=== PATIENT | female | born 1935 | race African-American/Black ===

== ENCOUNTER 2019-03-31 17:57 | Inpatient (IN) | payer OTHER, MEDICAID, MEDICARE ==
[~2019-03-31] VITALS: Ht 172.7 cm; Wt 81.2 kg
--- NOTE | 2019-03-31 17:57 | NUR ---
PT [facility] BLS TO ER BED 06
[2019-03-31 18:03] VITALS: BP 126/63
[2019-03-31] MEDS ORDERED: NACL 0.9% 500 ML IV SCH (18:12)
--- NOTE | 2019-03-31 18:30 | NUR ---
PT BIB CARE AMB S/P ALOC X 24 HOURS ACCORDING TO SNF. BASELINE A/OX1, NOW WITHDRAWING ONLY TO PAIN. GCS 8, PUPILS 2MM PERRLA. NO EVIDENCE OF FEVERS/NVD. 89% ON RA, 4L NC APPLIED. RESPIS E/U, DIMINISHED LUNG SOUNDS BILAT THROUGHOUT. SKIN INTACT. 97 BS. AFIB 90 ON MONITOR. HX OF CVA, HTN, DM.
--- NOTE | 2019-03-31 19:01 | NUR ---
Pt report given to MOISES Renner. Transfer of care at this time.
--- NOTE | 2019-03-31 19:15 | NUR ---
UNEQUAL PUPILS NOTED (LEFT PUPIL CONSTRICTED, R PUPIL DILATED), PT WITH HX OF CVA, DR EISENBERG MADE AWARE.
--- NOTE | 2019-03-31 19:15 | NUR ---
DR EISENBERG AT BEDSIDE. PER REPORT, PT WITH DECREASED LOC FROM BASELINE X24 HRS. SPO2 95% ON 3L NC, RR 15 EVEN AND UNLABORED. IVF INFUSING WELL ON L HAND 22G. FLOWERS IN PLACE. ALL NEEDS MET.
--- NOTE | 2019-03-31 19:40 | NUR ---
DAUGHTER AT BEDSIDE
[2019-03-31 19:42] LABS: BASOPHILS % (AUTO) 0.2 % (0.0-2.0); EOSINOPHILS % (AUTO) 0.9 % (0.0-4.0); HEMATOCRIT 34.9 % (36-48); HEMOGLOBIN 11.2 g/dL (12.0-16.0); LYMPHOCYTES # (AUTO) 1.7 K/uL (2.5-16.5); MEAN CORPUSCULAR HEMOGLOBIN 31 pg (27-31); MEAN CORPUSCULAR HGB CONC 32 g/dL (33-37); MONOCYTES # (AUTO) 0.3 K/uL (0.8-1.0); MONOCYTES % (AUTO) 7.3 % (1.7-9.3); NEUTROPHILS # (AUTO) 1.9 K/uL (1.8-7.7); NEUTROPHILS % (AUTO) 48.6 % (42.2-75.2); PLATELET COUNT (AUTO) 346 K/uL (140-450); RED BLOOD CELL COUNT(AUTO) 3.63 MIL/uL (4.20-5.40); RED CELL DISTRIBUTION WIDTH 15.3 % (11.6-13.7); WHITE BLOOD COUNT (AUTO) 3.9 K/uL (4.8-10.8)
--- NOTE | 2019-03-31 19:42 | NUR ---
DR MELTON AT BEDSIDE
[2019-03-31 19:48] LABS: APPEARANCE,URINE CLEAR (CLEAR); BILIRUBIN,URINE NEGATIVE (NEGATIVE); BLOOD, URINE NEGATIVE (NEGATIVE); COLOR,URINE YELLOW (YELLOW); LEUKOCYTE ESTERASE ,URINE NEGATIVE (NEGATIVE); NITRITE, URINE POSITIVE (NEGATIVE); PH,URINE 5.5 (5.0-9.0); UGLUCOSE NEGATIVE (NEGATIVE)
--- NOTE | 2019-03-31 20:00 | NUR ---
HOSPITAL ON CT DIVERSION, PT TO BE TAKEN TO [facility] FOR CT HEAD WITHOUT CONTRAST, [facility] ETA 1 HR
[2019-03-31 20:09] LABS: RBC,URINE 0-5 /HPF (0-5)
[2019-03-31 20:12] LABS: ANION GAP 10.3 (8-16); ASPARTATE AMINOTRANSFERASE 13 U/L (15-37); CARBON DIOXIDE 30.6 mmol/L (21-32); CHLORIDE 105 mmol/L (98-107); CREATININE 1.2 mg/dL (0.6-1.3); GLUCOSE 105 mg/dL (74-106); POTASSIUM 3.9 mmol/L (3.5-5.1); SODIUM SERUM 142 mmol/L (136-145); TOTAL BILIRUBIN 0.2 mg/dL (0.0-1.0); UREA NITROGEN, BLOOD 21 mg/dL (7-18)
--- NOTE | 2019-03-31 20:19 | NUR ---
PT LAYING IN BED SEMIFOWLER'S, DAUGHTER AT BEDSIDE. VSS. RR EVEN AND UNLABORED. ALL NEEDS MET AT THIS TIME.
[2019-03-31] MEDS ORDERED: NACL 0.9% 500 ML IV ONE (21:15)
[2019-03-31] MEDS ORDERED: cefTRIAXone 1,000 MG in LIDOCAINE MPF 1% - 5 mL VIAL 2.1 ML IM ONE (21:15)
[2019-03-31] MEDS ORDERED: LIDOCAINE MPF 1% 5mL VIAL ONE (21:24)
[2019-03-31] MEDS ORDERED: cefTRIAXone 1,000 MG VIAL ONE ×2 (21:24→23:16)
--- NOTE | 2019-03-31 21:29 | NUR ---
PT TO BE TAKEN TO [facility] ER FOR CT HEAD WITHOUT CONTRAST. [facility] TRANSPORT AT BEDSIDE, REPORT GIVEN, FACESHEET AND MD ORDER SENT WITH TRANSPORT. PT'S DAUGHTER AGREED TO STAY IN ER UNTIL PT GETS BACK.
--- NOTE | 2019-03-31 22:40 | NUR ---
PT BACK FROM CT SCAN FROM [facility]. NO CHANGE IN CONDITION. VSS. PT RR EVEN AND UNLABORED. ALL NEEDS MET.
[2019-03-31] MEDS ORDERED: AZITHROMYCIN 500 MG in DEXTROSE 5% 250 ML IV ONE (23:00)
[2019-03-31] MEDS ORDERED: ACETAMINOPHEN 325 MG TAB PO PRN (23:05)
[2019-03-31] MEDS ORDERED: DEXTROSE 50% 50 ML SYR IVP PRN (23:05)
[2019-03-31] MEDS ORDERED: INSULIN LISPRO SLIDING SCALE 100 UNITS/ML VIAL SUBQ PRN (23:05)
[2019-03-31] MEDS ORDERED: ALBUTEROL SULFATE/IPRATROPIU 3 ML SOL IH PRN (23:05)
[2019-03-31] MEDS ORDERED: DOCUSATE SODIUM 100 MG GELCAP PO PRN (23:05)
[2019-03-31] MEDS ORDERED: ONDANSETRON 4 MG/2 ML VIAL IM/IVP PRN (23:05)
[2019-03-31] MEDS ORDERED: DIVA250T45 PO ×2 (23:46→23:47)
[2019-03-31] MEDS ORDERED: MELA3TER PO ×2 (23:46→23:47)
[2019-03-31] MEDS ORDERED: ATOR40TA PO ×2 (23:46→23:47)
[2019-03-31] MEDS ORDERED: TRAZ100T78 PO ×2 (23:46→23:47)
[2019-03-31] MEDS ORDERED: AMLO10TA PO ×2 (23:46→23:47)
[2019-03-31] MEDS ORDERED: GABA-636 PO ×2 (23:46→23:47)
[2019-03-31] MEDS ORDERED: PHOS1PDR4 PO ×2 (23:46→23:47)
[2019-03-31] MEDS ORDERED: LEVO0.087 PO ×2 (23:46→23:47)
[2019-03-31] MEDS ORDERED: MIRT15TA4 PO ×2 (23:46→23:47)
[2019-03-31] MEDS ORDERED: INSU100I7 SQ ×2 (23:46→23:47)
[2019-03-31] MEDS ORDERED: SENN-72 PO ×2 (23:46→23:47)
--- NOTE | 2019-03-31 23:48 | NUR ---
RECEIVED PATIENT FROM ER BY JESUS, PATIENT IS NOT RESPONDING TO NAME WHICH IS THE REASON FOR ADMISSION, SKIN IS INTACT, VITAL SIGNS ARE STABLE, [id number] ACCOMPANIED PATIENT AND WILL ASSIST WITH ADMISSION QUESTIONS. PATIENT HAS 20G IV IN LEFT AC AND FLOWERS CATHETER DRAINING DARK TYRON URINE.
--- NOTE | 2019-03-31 23:49 | NUR ---
Patient will be admitted to care of DR. SOTOMAYOR. Admited to [facility]. Will go to room 121A. Belongings list completed. Report to WILL DE LEON.
[2019-03-31 23:50] LABS: MAGNESIUM 2.1 mg/dL (1.8-2.4); PHOSPHORUS 3.6 mg/dL (2.5-4.9); THYROID STIMULATING HORMONE 6.79 uIU/mL (0.34-3.74)
--- NOTE | 2019-04-01 00:45 | NUR ---
PATIENT IS PULLING AT IV SITE. WRAPPED IV SITE WITH GAUZE TO DISTRACT PATIENT. PATIENT ALSO PULLING HER GOWN DOWN. PATIENT NOT FOLLOWING COMMANDS OR RESPONDING TO HER NAME.
--- NOTE | 2019-04-01 01:15 | NUR ---
PATIENT IV HAS INFILTRATED. UNABLE TO FIND A SUITABLE VEIN FOR REINSERTION. DOCTOR WILL ORDER A CENTRAL LINE INSERTION.
--- NOTE | 2019-04-01 02:20 | NUR ---
CONSENT FOR CENTRAL LINE OBTAINED FROM SON JUANIS NEAL WHO HAS POA.
[2019-04-01] MEDS ORDERED: LIDOCAINE MPF 1% 5mL VIAL ONE (03:27)
--- NOTE | 2019-04-01 03:30 | NUR ---
CENTRAL LINE PLACEMENT WAS UNSUCCESSFUL. PATIENT STABLE, BUT NO IV ACCESS AT THIS TIME.
[2019-04-01] MEDS ORDERED: LIDOCAINE 1% 500 MG/50 ML VIAL INJ SCH (03:40)
--- NOTE | 2019-04-01 03:55 | NUR ---
LEFT MESSAGE FOR PICC LINE NURSE FOR STAT PICC LINE INSERTION.#[phone]
[2019-04-01] MEDS ORDERED: ALBUTEROL SULFATE/IPRATROPIU 3 ML SOL IH SCH (06:00)
--- NOTE | 2019-04-01 06:15 | NUR ---
Called to bedside to nasotracheal suction the patient, suctioned copious amounts of thick white secretions, attempted to obtain blood gas after and was unable to due to patient thrashing and wailing, will let patient calm down and endorse to day shift to obtain abg.
[2019-04-01] MEDS: LEVOTHYROXINE 0.088 MG TAB PO SCH (06:30)
[2019-04-01 06:51] LABS: BASOPHILS % (AUTO) 0.3 % (0.0-2.0); HEMOGLOBIN 11.9 g/dL (12.0-16.0); LYMPHOCYTES # (AUTO) 1.5 K/uL (2.5-16.5); LYMPHOCYTES % (AUTO) 12.1 % (20.5-51.1); MEAN CORPUSCULAR HEMOGLOBIN 31 pg (27-31); MEAN CORPUSCULAR HGB CONC 32 g/dL (33-37); MEAN CORPUSCULAR VOLUME 96.1 fL (80-94); MONOCYTES # (AUTO) 1.1 K/uL (0.8-1.0); MONOCYTES % (AUTO) 8.8 % (1.7-9.3); NEUTROPHILS # (AUTO) 9.5 K/uL (1.8-7.7); NEUTROPHILS % (AUTO) 78.8 % (42.2-75.2); PLATELET COUNT (AUTO) 372 K/uL (140-450); RED BLOOD CELL COUNT(AUTO) 3.85 MIL/uL (4.20-5.40); RED CELL DISTRIBUTION WIDTH 15.3 % (11.6-13.7)
--- NOTE | 2019-04-01 07:37 | NUR ---
GAVE BEDSIDE REPORT TO DAY SHIFT RN. PATIENT RESTING ON 3L NC, NO SIGNS OF DISTRESS. ENDORSING PATIENT IN STABLE CONDITION FOR CONTINUITY OF CARE.
--- NOTE | 2019-04-01 07:38 | NUR ---
RECEIVED BED SIDE REPORT FROM YOUTH CAREER SPECIALIST RN, PT SLEEPING, ON 3L NC WITH NO RESPIRATORY DISTRESS, SUCTION NEAR PT, CHANGED SUCTION CANNISTER, IV ON THE RIGHT FOOT 20G WITH BANDAGE WRAPPED AROUND IT, NS RUNNING AT 100, SKIN INTACT, CALL LIGHT WITHIN REACH, WILL CONTINUE TO MONITOR
[2019-04-01 07:40] LABS: ANION GAP 10.6 (8-16); CARBON DIOXIDE 29.2 mmol/L (21-32); CHLORIDE 106 mmol/L (98-107); GLUCOSE 83 mg/dL (74-106); POTASSIUM 3.8 mmol/L (3.5-5.1); SODIUM SERUM 142 mmol/L (136-145); UREA NITROGEN, BLOOD 18 mg/dL (7-18)
[2019-04-01 07:50] LABS: MAGNESIUM 1.8 mg/dL (1.8-2.4); PHOSPHORUS 3.3 mg/dL (2.5-4.9)
[2019-04-01 08:00] VITALS: BP 122/62
[2019-04-01] MEDS ORDERED: PIPER/TAZO 2.25GM/D5W PREMIX 50 ML IV SCH (08:02)
--- NOTE | 2019-04-01 08:07 | NUR ---
REMOVED NC , O2 SAT 96% ON RA, WILL CONTINUE TO MONITOR
--- NOTE | 2019-04-01 08:29 | NUR ---
PATIENT HAS BEEN SCREENED AND CATEGORIZED HIGH NUTRITION RISK. PATIENT WILL BE SEEN WITHIN 1-2 DAYS OF ADMISSION. 04/01/19-04/02/[address]
--- NOTE | 2019-04-01 08:44 | NUR ---
SPOKE WITH PREM FROM PICC LINE SERVICE, STATED DINAH PICC LINE-RN WAS ALREADY NOTIFIED AND HE WILL CALL FOR ETA. DENNY/MARGIE NURSE ASSIGNED MADE AWARE.
[2019-04-01] MEDS: LACTOBACILLUS RHAMNOSUS GG 1 EACH CAP PO SCH (09:00)
[2019-04-01] MEDS: amLODIPine 5 MG TAB PO SCH (09:00)
[2019-04-01] MEDS ORDERED: [UNRECOGNIZED DRUG - OTHER] PO SCH (09:00)
[2019-04-01] MEDS ORDERED: NON-FORMULARY ITEM (Levothyroxine Sodium 1 TAB) PO SCH (09:00)
[2019-04-01] MEDS: SENNA 8.6 MG TAB PO SCH ×2 (09:00→20:44)
[2019-04-01] MEDS ORDERED: LACTOBACILLUS RHAMNOSUS GG 1 EACH CAP PO SCH (09:00)
[2019-04-01] MEDS ORDERED: NAPH MB DB PO SCH (09:00)
[2019-04-01] MEDS ORDERED: DIVALPROEX SODIUM 250 MG PO SCH ×2 (09:00)
[2019-04-01] MEDS ORDERED: amLODIPine 5 MG TAB PO SCH (09:00)
[2019-04-01] MEDS ORDERED: K PH MBDB PO SCH (09:00)
[2019-04-01] MEDS ORDERED: SENNA 8.6 MG TAB PO SCH (09:00)
--- NOTE | 2019-04-01 10:09 | NUR ---
PT COMBATIVE UNABLE TO OBTAIN ABG
--- NOTE | 2019-04-01 10:15 | NUR ---
CALLED PT'S SON JUANIS NEAL AND GOT OVER THE PHONE CONSENT FOR PICC INSERTION TO BE DONE TODAY BY DINAH THE PICC LINE RN. JUANIS NEAL CONSENTED. DR. PAULSON SIGNED THE CONSENT FORM.
--- NOTE | 2019-04-01 10:25 | NUR ---
NONADMIN PO 0900 MEDS DUE TO DYSPHAGIA, ATTEMPTED TO GIVE HALF A SPOON OF APPLESAUCE, PT POCKETING FOOD. NG TUBE PLACEMENT ATTEMPTED LAST NIGHT BUT COULD NOT GET IT IN. NOTIFIED DR. PAULSON AND WILL PUT IN ST ORDER AND SAID TO HOLD PO MEDS.
[2019-04-01] MEDS: DEXT 5% /NACL 0.9% 1,000 ML IV SCH ×3 (10:50→17:27)
[2019-04-01] MEDS: BLOOD GLUCOSE MONITORING 1 DEV DEV FS SCH ×3 (11:30→20:30)
[2019-04-01 12:00] VITALS: BP 134/67
[2019-04-01] MEDS: PIPER/TAZO 2.25GM/D5W PREMIX 50 ML IV SCH ×3 (12:00→23:45)
--- NOTE | 2019-04-01 12:30 | NUR ---
PT REPORTED RIGHT EYE PAIN, BOTH SONS AT BEDSIDE, TALKED TO PT, PT ABLE TO VERBALIZE PAIN IN HER RIGHT EYE, ASSESSED BOTH EYES NOTED TO BE SLIGHTLY PINK, NO ABNORMAL DISCHARGE, NOTIFIED DR. RAMIREZ AND SAID "WILL COME TO SEE PT"
--- NOTE | 2019-04-01 13:20 | NUR ---
04/01/19 RD INITIAL ASSESSMENT COMPLETED PLEASE REFER TO NUTRITION ASSESSMENT UNDER CARE ACTIVITY FOR ESTIMATED NUTRITIONAL NEEDS. 1. CONTINUE NPO MEDICALLY APPROPRIATE 2. RECOMMEND SWALLOW EVALUATION 3. RECOMMEND REGULAR DIET WITH TEXTURE AND LIQUID CONSISTENCY SUGGESTED BY SWALLOW EVALUATION 4. IF PATIENT FAILED SWALLOW EVALUATION, CONSIDER ENTERAL NUTRITION 5. RD TO FOLLOW-UP 2-3 DAYS, HIGH RISK RAFY ARCOS, TRESSA
--- NOTE | 2019-04-01 13:43 | NUR ---
PT IN STABLE CONDITION, GLUCERNA 1.2 G TUBE FEEDING STILL RUNNING AT 60ML/HR, FWF 200 Q6H, TRACH TO T PIECE CONTINUED, FIO2 30%, VT 502, RR 22, PEEP 5, PEAK PRESSURE 33, 100% SPO2, HR 112, ST, HEEL PROTECTORS AND SCDS IN PLACE, IV FLUIDS CANCELLED AT CHILDCARE WORKER DUE TO SWOLLEN HANDS, FLOWERS CATH IN PLACE, NO IV ACCESS, BED ALARM ON, CALL LIGHT WITHIN REACH, WILL CONTINUE TO MONITOR Addendum: 04/01/19 at 1348 by Ole Clark RN PLEASE DISREGARD THIS NOTE. WRONG PATIENT
--- NOTE | 2019-04-01 13:50 | NUR ---
PT IN STABLE CONDITION, RESTING COMFORTABLY, ON RA WITH NO RESPIRATORY DISTRESS, NO SIGNS OF PAIN, 3 SONS AT BEDSIDE, DR. RAMIREZ DID NOT COME BY TO SEE PT'S RIGHT EYE, CALL LIGHT WITHIN REACH, WILL CONTINUE TO MONITOR
[2019-04-01] MEDS: ALBUTEROL SULFATE/IPRATROPIU 3 ML SOL IH SCH ×2 (14:03→19:35)
--- NOTE | 2019-04-01 14:55 | NUR ---
PT'S CO2 WAS 73, RT CAME TO PUT BIPAP ON PT, PT COMBATIVE AND RESTISTING, LET DR. PAULSON KNOW AND ORDERED SOFT BILATERAL WRIST RESTRAINTS, CALLED HER SON JUANIS NEAL TO LET HIM KNOW, AND LEFT A VOICEMAIL
--- NOTE | 2019-04-01 14:55 | NUR ---
PT'S CO2 73, RT CAME TO PUT PT ON BIPAP, PT COMBATIVE AND TRYING TO PULL MASK OFF, LET DR. PAULSON KNOW AND ORDERED BILATERAL SOFT WRIST RESTRAINTS, RESTRAINTS APPLIED, LEFT VOICEMAIL TO SON JUANIS NEAL TO LET HIM KNOW, CALL LIGHT WITHIN REACH, WILL CONTINUE TO MONITOR
--- NOTE | 2019-04-01 15:01 | NUR ---
DECREASED FIO2 TO 24
--- NOTE | 2019-04-01 15:14 | NUR ---
JUANIS NEAL CALLED BACK, AND NOTIFIED OF BIPAP AND SOFT BILATERAL WRIST RESTRAINTS AND AGREED WITH PT'S CURRENT TREATMENT
[2019-04-01 16:00] VITALS: BP 136/54
[2019-04-01] MEDS ORDERED: HALOPERIDOL IM 5 MG/ML VIAL IM SCH ×2 (16:15→22:30)
--- NOTE | 2019-04-01 16:59 | NUR ---
DECREASED FIO2 TO 21 SPO2 97
--- NOTE | 2019-04-01 19:00 | NUR ---
REPORTED TO RN AND STAFF THAT RT WAS UNABLE TO GET ABG BECAUSE PATIENT WAS MOVING ARMS AND LEGS. PATIENT STABLE AND ALERT AT THIS TIME [id number]1601348839960815548210280078 444WWWWWWWWWWWWWWWWWWWWWWWWWWWWWWWWWWWWWWWWWWWWWWWWWWWWWWWWWWWWWWWWWWWWWWWWWWWWWWWWWWWWWWWWW IQIWGFKTZGUGLLCENGD[id number]13399368337762396 68471116390167941461690258066884578611697435117218020759715698663735195530817566157181918317 55643919095188420122778075725088635361468007181894505686125346336554905448341056572878733304 99962146337514180788399206286201350582082428438913068390974192037837966592864170490659732191 81696360856704656079492188681912621848730076011237186523018283636305839187078536063491411439 43007086005091686726653463900989868152998937041909938592692618416629706410388186988255363173 29182456801151548795509915535208403766392057014907831617663545382947121857377067601465727138 24227618227396065416916497646007717252430224486774027991438784446122343380725994706303518902 49555175175200281073002247165272749343716496765577242787707534585768193301291267717505725878 96052628823620351718094797642576807108255985650749870331306633639760414746426170360184267274 35396455451543650919032334268489377214493760196978531134830035530437358404706636685458986537 21811141325953717899166951180280485019021237996093955883621771796413779012172879881337411500 43587767235558700010893450093469162311863450167508364578997942696371518915543967179234466223 41269650331887856448761041196135242360635259287894498190870480268972386684724269135244531903 79511236614887906695930985292539495257803011658879192089134962951053121925158854238282428807 14777825821353256109626313805544143460458126776282992325465743250120257044087597297271092791 83882205499293672947084283146630022546479513074102107484742703476824586417792594930962811669 29734763188759631925024481261218022873214584934779120041665920134974444119974389841656070127 99782227916012658459681428525681647231517699419925251466911610553235843830023500036163567576 74792782516862418582774610344836903449427757177800692555078659185008065527331168479987050884 48362101895864034106697021903830481415342750565342552444594501583669169505144377187162280514 24960202545170655893974080144334739261078423737111224437563321890455228974202352984699624828 71509037053203697526266975412096773440294697899113025709452480819958222019913181828362610575 25913499016707668900255190726076556490543001308098166616298254418038721456191516388979350828 21883636108959061136187215191389541195262637165387081377683067261837520414341819346129756373 75334337459442479376670571810638808505153797234370772440077832605009862118632102835527799535 16460369562599421981815231461121002927915597748272956974549888981290838910504808012854650524 55665781021287388639092329310155055460328839358639991973645437032679606783402186210220088793 41329298298917671246102720775587844463469970187461659125890341604825277531977352814690163047 81654619971312140765567654669616643824966734001016360937261941232502257150647840092587392107 26355962269749904736606936596247742000052829436493632106784957731671028480268195931501901725 36905669650379711121890028635756459509562529432985965909409554629398424814460792229460723538 84707876381496577275760053407676854095748958373452681067238389787713426396525470782366794810 64124445101820852026605102430464920357657232338719978913356945892049942862121760936057096657 77936521982151759581069989121568458720716455999976222733805955366494068135941553956057724772 37332965377527893887752854630302342013334942804993594613508760996918193518509344813255322765 45597701409663757071942346908616728059784835261354827560166759535206367813648900624959846833 84554153399608611281462204947529003777056517063973926137021850804701679449698659147804474119 25637489749295778809882252407995736225189986611122652201069924066204577328023317384360493452 94892110122789626636393711883751771973512913154343286850453942488200845848612667402990518155 68871058162318740355877859564945713566291959892884301437534932224067394338673518903444365949 67340880772874987157890827205287308297477593407203918566399919302186459828468905936277800260 65843435553472211017907231017144546908446708129219532145745810055472940885264165653141155752 02669979558484210696193869863419232697296992544609132666005903190802764600024628129177327940 77808701178026981544303902294590336367555961379946136459052419934549622488188219666819162386 74944182463825037645190247318099202380222930212162039332482224245807571007627889774290431860 12905576526446533962303201041634656345094404953031179367473555910893800263183915800081923119 98733237402728204290120050001781349293498213144110518820650387400321720265119168840894563204 32580049282109545964338512797509414572639411684580164652788953621811102507941637490824033420 36670898682397338881219534170818017363393716714322949702198303588346041572051314943031112417 28197214271738156847624227762984856446110571283142958969333805782300070035586727827057647627 09456370508759163768422173219120308923976911897819996021120774840334753191403446931998460476 35047735108137934413621097559007478925140462761924664436499535248109370003356119024374060949 07492105744496140405233183866963390042802466345280294058537371574932613465961855150247341925 82468941097275026253273208356100396130632167248799418727323420598193842662669218897027456119 57962645483441140425205439876311673583385851028458749848347275314589732940742447654498139676 59684621383480937664271030261228923688189283588451954250393238405992981762217552855875166894 17743476380834075747342397201981647837504442263124772130826692766810669968270114196987469624 63071349259702149309265850451138793101310413263738797240273053596383668701164398585047510328 36634525846453325349537758278982129421486882777168512945621468761117809441376465484978247450 95551423733232720403474086040971626800203067654483271928942664212288559745827459530627179479 26922524405870187462446781230490517234917886453298399083144221282508797589483741274899872296 59257648424999489382206820835096650990809430644988633470224559154249425763580990134056976673 46097099851180571857651218625363336810543667611173786986749505205976231049996325787139512726 49763852912707666228186921695843994761417665594302395857699403376835651366315074502064631025 32770309962633509710628589198202309969569284029734531778364239124306305442130486358363142656 68698752836651889706941221211827592165291252660395098480678012034657911430551065476956162246 49944590859270397417946922474906054418712418756351440393046589440310435871449084690683593340 00165011752441148706998515721498885573989125143933269563022569992511242025065664884657266717 86750183461762978955317984000040593042731469398767187999141239007489372561953431476745130301 38518820313602311507602913557161337128916629465258202511581926324479197753657099227735845044 96695437717307642066103867920696961570444977218425681167630132536885134230579254797259211807 60988335128135717132425534683274334486018795516594203204543757398288927104766470122229194609 98544649497608325319533107704973394556328712747806665459188827841156544399463876044375292977 63068337924685425682505985410021249956080150777699122565447231609093754428823635196424004472 40578946301155128524560730350070365432223302978935807773461775522353730291866940391867120816 81512423184887119893241073337662900566376100640369725363045069636610167339174507417705137095 70111294375926371766620512932296429649610992569224361997237677606994209457338199956702503347 51118712764625258429358981578292549156985396912189981058730737578680517723644144387455294018 67327332535814437060794893693148902187945644841779100719990508752870463065923650587962455094 69014030328518423640828115822075078877480516610592904534055536879510396590620116411329753023 15722741080354546730883117405758457551137723266262093849946830575252780059587464332920402858 47973477903307250742115291970622188476368977283536418266280695171694305440277747877498555875 43197329479279648229060835930110481175816635943740883052685115832098120138406920411880829701 16085809209642826170283341042684307586644423956299361980886946089251646405899968180675290006 83816808002584658016829123418066560022731402721827122926281234225192904218307697644797930843 41288532105364123069509073666351662464114961251447943212151107766174731808749294043615063089 25286954080954152642958780953344588460977450671501449420958403838630274306534671813173009175 55722588405278251551559295277941097274891883839836014951722083022717671350950834388921117062 26172986458274981762072082309556560544557766211290682337858181582282520160165051732670906321 43211253160836862901260322354905522113850027457059438737318376715527283798469228023981275235 45958081704352026439181227315871901657447998366118612520853790087590147526708786514537137862 17191394803101924574856114659985334244798326556764133544924846095866490838529172050535371370 62852222459293975328310600113572653947613490983213658454579722526166385739318464575143340310 01642138434256498861686514294806620326639301472814156848173415345920828205420815679056056878 08311804671069948269998489776762287859426651478114002779316803781543432162642098332747783933 87695131892697980322797859649814649485636338049351797393078447878492667884438296973550938421 49186603002671037588807132931725279895435979851658858528619570066571498124917245788946788942 55127699141029393931656564835180703872834335350074394071700180898593119412598439682284332122 06853438408836805566579692116061730464222692101915387106361077459256762751969895179945955527 20393301837785317730308545637506122649347865312193310698307799864243112200343364691309536847 70296703675483698531293676562749299455450376358112929571931251323353181655516637341948182984 30768256526481691401633743818713453751947932562470289064523380163173531650167217286868633800 59983737817011159946472520002095859090271698245724680639418311450312388232434260705167276487 52092374732298574411857510370695939108180773963036033625482974309012483688266679080189462717 28842453279446044484843853738109594002714152974601961723296688153208498870695311327364244564 33711181649641034746752981462229000649450546730089749721135726673746959447374891067322823335 19967098233507458935482182979951430285323587024997609264468084783810627867576925889451519089 59329854140499850911998429597464708421449098697539591182963752702382723347916714778037474375 05251008119845309024875074848559620596439030347428766074810606608463889439531371653645095951 26063280231409935103183729020276278344904002986045544576588033695973312198191100721016634099 45179542758781458472380592684227286840664151954397315374247693326943785307111979072755887572 28014680501748891581380917171207088354452008288377491433091351509983276055156327215033915729 57138756299654309501926512603505870805540926593568984458923044642799989121994052050282548719 65237542740533689145631998203405173501675354991586373285990788347932104019600620962745181163 53795845168950207033294278040702952301889670478893671530119564909532468941483750439028590545 13441676625286848903154490571145228040155107038387607327755995269646218451513416497490286533 20650763594773198295476031111070764044916713616390326831572739439594352504855038260921382895 38062103348964723853755854123011201955015426762906577283521799846437729604182523509479555445 10337691915333568029710302784293135344576425384226856883543630142350651500682571497298903251 71701224465195363934416977840268553844938023767863445439196626457814646796294631973653246343 17865089568904017219086266448744444124658669767734945206132614650860548428689888744069636001 57248192525988058185619282652299660316901418416292110115485273682771207320707674324108965884 79872449090148599412597186448772750632970572549710544466338866193868954093902755328164900396 80522867258041083341395852298544123321247219640562017075307178989165634511735737106146846181 10041684336758862069002383545629180641567442774013333801673899576525203670901759098684704826 08854903496087777655539999054732054859627107039088933741603116892648525197564743625431472416 14785510107941628713258167666666028618088449383261508763524722663259054994826407187410298634 19397080664415211838723700813015176179645382890043940978117454897275467870391760138433000900 96187643869117701479463869834843859091543894847384278550983576012150750531777547792832526255 61787734886796830947075909249378507308971352263602390752551806757251780906612552796377594676 13676148429998877392049408374581954558125236175615782986421240538961022439443264408377032750 80375500235763740208438687629230097603462309963534987358280274152492204597355160871552225199 97253050326437490407116740261894165033855839125071232397874511070683895383678243148955519358 71984405577470917612541428869677854356779144740902538663898952869170157340330173339829931386 46469795918563425485238768072851539763285918640341303707803503834174278700433762280442942578 94148524781348669368108289000086103769433324950361663383644645844651950460674791600708752825 82813165410350443534379574203554902485880574362936448100185933226561437115655709751551481522 07829479337500445128028197346352548801903370008408405631383228512027960849757821437538487022 81537402410214796658769266386251473946937809233628492891691760654140613717565630501156036678 94688356253180130632148776593014291246824404640995929220149938695650153303789586042600357020 93537286343307343795536136748460413311048887252375441271840319008461667424409631409564176465 22268442053215945714755764925235161150429291780870720770865795192667996961873216452224381388 64433151162306938055887440396630800490070462854140379295963756127149059716583009789563213160 24367596253443795339666094227862324404881860251432626858028606763201765199076279239300669217 41954001737880095630607979971459272813133122641481512433058170569578040152390091829513959652 14453052536480167903841269882142119938676982778969068884730070402279570425850191077666761316 75997796221167639191616042745780236120681084418686105483476608881188742178326263855495674628 29652223283013048106481284646323626438626316688084502516155157739304633933031185423551885630 35513474569915414474518040646875763245540374304617099320612644504607082468329205084565274945 34208327766057513690075990108448354014701347015984132971475257272218150305761450337172563736 11201573872874085716129314804902295131395782362613547762030054695577101004519583604382345969 73010901759653666731631146218239042012525096223134950851350415454583437100787379236049378906 50999370178247548733091697778176107320214809099503794423607291300414455152534891506528313017 26641351284987305754888121725870926049365672730218077095269578395884180679311896794020442376 39064442671649755634243304764828805902809857155754682617126096803194441316129846962612821837 65551094496572293965880901357409814518577030283616509556550842063106575250685548600632464409 60186310147651228324632289669988679775569596487490902102575867279446968732980882623391387586 85115787645252439266621873037487664459213014560196644028033755045543244175286670961193038904 21195457443051643536494669117464703067539108572724788594261507981905994495279239480740183911 89535869249235442743565197105427150482183892761588339024405820137449187767123264523473495509 57438206124993769522415201159969411956306971326715397791175944329197722229920700224067632566 82049376522867920912634438738924330861256048653269665459380305284617032656631289776078824024 06174079200731544483429349356904345248432225001592906026466272067829287854666615533497187361 29728956233149033026230223368725344701167270664377862712122725662463683108799353030938686588 66855731166990145828853406950977989154562217403445742322428928243499638221121853365768538630 53227473342284429922137421190604070241124093198821502645056709828139821778923457367581328617 07956315767451329012975200562068622650454517626192680513658437759189604447955581303715116152 00330373353082175491054386830450350460788795655089661439929519021950849160750968287654749778 30776910866307625035912592742062046411871411011857921080482173887628269232526890201610077835 35863879316141816040353076626202602113460744615312984374911402570870258124706265172311268882 84593436392450417612099666714798408268866203407438223162690123420725698765977452693423405446 02326423864084160939255585827617283748349181470217890438082220294691934108738605549070331188 43777341856226022166809255841841359948970724574885254217701871749375940865505051227452437533 53813893637199717590098650475510527644542003532233965409855439345633039040121390193564318763 14791275630040761731351426644023602287744874116449526395495959012123520258338792727991709248 51454443522016748797467297818553346445294207409063106111401022856752693647401289522661993613 00266416423846231080757522604332520925733576552808352327125013426155028427872060413008676656 18299715095627357951503807814991771263871430191991995661450114076047246639892441374928391116 89766122557833907809091518413381082523676063233220499085534783812731386550815083315921835569 67359131269701047558715508284282134144587300900897679888841050440867252155579437426557034165 20478483827717586785400711247205850334918272115737856685774569204998177030710777410599509394 43549760263268003014689777382407292641453489322658258563034425430447917466781984952871395557 09511770586509341571172270308838917261289936903158571966715617464721468653100791529840528164 25806774453468767982467807363875762223982320010673449886707840929632408342001703112133651264 56614284252975227869619046826007174842772760716646489440028624212997796699384180768622461104 66521174744379693249076030262779803073859965154 Addendum: 04/02/19 at 0724 by Kristian OWENS DISREGARD BOTTOM SECTION W NUMBERS
--- NOTE | 2019-04-01 19:20 | NUR ---
GAVE BEDSIDE REPORT TO POWER PLANT OPERATOR RN, PT IN STABLE CONDITION, PICC LINE RN AT BEDSIDE
--- NOTE | 2019-04-01 19:21 | NUR ---
REPORT RECEIVED FROM AM NURSE AT BEDSIDE. PT IN STABLE CONDITION. AAOX1. BOARD UPDATED. FLACC 0. NO SOB ON BIPAP. O2 SATURATION 97%. AFEBRILE@98.8. IV SITE R FOOT 24G RUNNING D5NS@100ML/HR PATENT AND INTACT. PT HAS A RIGHT UPPER ARM PICC LINE INSERTED NOT USABLE UNTIL XRAY COMES BACK. SKIN WARM, DRY, AND INTACT WITH NO OPEN WOUNDS. BED LOCKED IN LOW POSITION. CALL FIERRO WITHIN REACH. SAFETY PRECAUTIONS IN PLACE. ALL NEEDS MET AT THIS TIME. Addendum: 04/02/19 at 0254 by Archie Hutchinson RN PT HAS LIONEL IN PLACE.
[2019-04-01 20:00] VITALS: BP 129/58
--- NOTE | 2019-04-01 20:30 | NUR ---
HEPARIN GIVEN SUBQ. BS 107. NO INSULIN COVERAGE NEEDED. Addendum: 04/02/19 at 0643 by Archie Hutchinson RN DESYREL, LIPITOR, MELATONIN, NEURONTIN, REMERON, AND SENAKOT ON PHYSICIAN HOLD DUE TO NEED FOR SWALLOW EVAL.
[2019-04-01] MEDS: ATORVASTATIN 20 MG TAB PO SCH (20:43)
[2019-04-01] MEDS: traZODone 50 MG TAB PO SCH (20:43)
[2019-04-01] MEDS: MIRTAZAPINE 15 MG TAB PO SCH (20:44)
[2019-04-01] MEDS: GABAPENTIN 100 MG CAP PO SCH (20:44)
[2019-04-01] MEDS: MELATONIN 3 MG TAB PO SCH (20:44)
[2019-04-01] MEDS ORDERED: GABAPENTIN 100 MG CAP PO SCH (21:00)
[2019-04-01] MEDS ORDERED: NON-FORMULARY ITEM (Melatonin (Melatonin) 3 MG) PO SCH (21:00)
[2019-04-01] MEDS ORDERED: NON-FORMULARY ITEM (Trazodone HCl 100 MG) PO SCH (21:00)
[2019-04-01] MEDS ORDERED: MIRTAZAPINE 15 MG TAB PO SCH (21:00)
[2019-04-01] MEDS ORDERED: ATORVASTATIN 20 MG TAB PO SCH (21:00)
--- NOTE | 2019-04-01 22:40 | NUR ---
HALDOL GIVEN IM FOR AGITATION. PT TOLERATED WELL.
--- NOTE | 2019-04-01 23:26 | NUR ---
RT ATEMPTED ABG BUT PATEINT WAS MOVING HER ARMS AND LEGS AGRESSIVELY PREVENTING THE RT FROM HOLDING HER ARM AND OBTAINING A SAMPLE. PT IS STABLE AND ALERT ON BIPAP.
--- NOTE | 2019-04-01 23:45 | NUR ---
BENADRYL GIVEN FOR RESTLESSNESS IVP. PT TOLERATED WELL. Addendum: 04/02/19 at 0051 by Archie Hutchinson RN BRENNAN KILLIAN AND JAS.
[2019-04-02] VITALS: BP 138/58
[2019-04-02] MEDS ORDERED: diphenhydrAMINE 50 MG/ML VIAL IVP SCH
[2019-04-02] MEDS ORDERED: AZITHROMYCIN 250 MG in DEXTROSE 5% 250 ML IV SCH ×2
--- NOTE | 2019-04-02 00:40 | NUR ---
PT KICKED OFF IV ON RIGHT FOOT. CANNULA INTACT. PT HAS NEW PICC LINE THAT WAS INSERTED AT 1930. WILL USE 1 PORT FROM PICC LINE FOR IV FLUIDS.
--- NOTE | 2019-04-02 02:50 | NUR ---
PT SLEEPING COMFORTABLY IN BED. NO S/S OF DISTRESS NOTED. PT ON 4L O2 VIA NC SATTING@97%. RESPIRATIONS WNL. WILL CONTINUE TO MONITOR.
[2019-04-02 04:00] VITALS: BP 140/93
--- NOTE | 2019-04-02 04:30 | NUR ---
PT AWAKE IN BED MOANING. NO S/S OF DISTRESS NOTED. WILL CONTINUE TO MONITOR.
[2019-04-02] MEDS: PIPER/TAZO 2.25GM/D5W PREMIX 50 ML IV SCH ×3 (05:17→17:31)
--- NOTE | 2019-04-02 05:17 | NUR ---
BRENNAN HUNG AND RUNNING. BS 77. NO INSULIN COVERAGE NEEDED.
[2019-04-02] MEDS: BLOOD GLUCOSE MONITORING 1 DEV DEV FS SCH ×4 (05:29→21:25)
[2019-04-02] MEDS: DEXT 5% /NACL 0.9% 1,000 ML IV SCH ×2 (05:31→16:00)
[2019-04-02] MEDS: LEVOTHYROXINE 0.088 MG TAB PO SCH (05:32)
--- NOTE | 2019-04-02 06:00 | NUR ---
CALLED RT TO DO DEEP SUCTION.
--- NOTE | 2019-04-02 06:10 | NUR ---
CALLED TO BEDSIDE BY RN DUE TO AUDIBLE SECRETIONS. NASOTRACHEALLY SUCTIONED PATIENT WITHOUT INCIDENT. RN AT BEDSIDE TO ASSIST. SUCTIONED LARGE AMOUNT OF THICK, PALE YELLOW SECRETIONS. HEART RATE 110, PULSE OX SAT 97%. WILL CONTINUE TO MONITOR.
--- NOTE | 2019-04-02 06:30 | NUR ---
SYNTHROID ON PHYSICIAN HOLD DUE TO NEED FOR SWALLOW EVAL.
[2019-04-02 07:03] LABS: BASOPHILS % (AUTO) 0.1 % (0.0-2.0); EOSINOPHILS % (AUTO) 0.2 % (0.0-4.0); HEMATOCRIT 31.3 % (36-48); HEMOGLOBIN 10.3 g/dL (12.0-16.0); LYMPHOCYTES # (AUTO) 1.6 K/uL (2.5-16.5); LYMPHOCYTES % (AUTO) 25.7 % (20.5-51.1); MEAN CORPUSCULAR HEMOGLOBIN 31 pg (27-31); MEAN CORPUSCULAR HGB CONC 33 g/dL (33-37); MEAN CORPUSCULAR VOLUME 94.9 fL (80-94); MONOCYTES # (AUTO) 0.8 K/uL (0.8-1.0); MONOCYTES % (AUTO) 12.3 % (1.7-9.3); NEUTROPHILS # (AUTO) 3.9 K/uL (1.8-7.7); NEUTROPHILS % (AUTO) 61.7 % (42.2-75.2); PLATELET COUNT (AUTO) 307 K/uL (140-450); RED CELL DISTRIBUTION WIDTH 15.1 % (11.6-13.7); WHITE BLOOD COUNT (AUTO) 6.4 K/uL (4.8-10.8)
--- NOTE | 2019-04-02 07:22 | NUR ---
RECEIVED BEDSIDE REPORT FROM [employer]MENT INSTALLER RN, PT IN STABLE CONDITION, CONTINUE TO SCREAM, PT CONTINUES TO MOVE AND WILL NOT LET US TAKE BP, TRIED EXPLAINING TO PT ABOUT REASON FOR BP EXAM, TRIED OTHER SITES TO TAKE BP BUT COMES OUT INACCURATE, WILL MEDICATE PER MD ORDER FOR ANXIETY AND RESTLESSNESS, SOFT BILATERAL WRIST RESTRAINTS STILL ON, SKIN INTACT, PICC LINE ON RIGHT UPPER ARM, SITE LOOKS CLEAN AND DRY, ON 2L NC, IN NO RESPIRATORY DISTRESS, IV FLUIDS RUNNING AT 100ML/HR, FLOWRES STILL IN DRAINING CLEAR YELLOW URINE, CONTINUES TO BE NPO, WILL WAIT FOR ST TO COME SEE PT TODAY, CALL LIGHT WITHIN REACH, BED LOW AND BED ALARM ON, WILL CONTINUE TO MONITOR
--- NOTE | 2019-04-02 07:22 | NUR ---
REPORT GIVEN TO AM NURSE AT BEDSIDE. PT IN STABLE CONDITION.
[2019-04-02 07:44] LABS: ANION GAP 8.7 (8-16); CARBON DIOXIDE 31.6 mmol/L (21-32); CHLORIDE 107 mmol/L (98-107); GLUCOSE 77 mg/dL (74-106); POTASSIUM 3.3 mmol/L (3.5-5.1); SODIUM SERUM 144 mmol/L (136-145); UREA NITROGEN, BLOOD 9 mg/dL (7-18)
[2019-04-02 07:53] LABS: CREATININE 0.9 mg/dL (0.6-1.3)
[2019-04-02 07:54] LABS: MAGNESIUM 1.5 mg/dL (1.8-2.4); PHOSPHORUS 2.2 mg/dL (2.5-4.9)
[2019-04-02 08:00] VITALS: BP 137/75
[2019-04-02] MEDS: ALBUTEROL SULFATE/IPRATROPIU 3 ML SOL IH SCH ×3 (08:13→20:06)
--- NOTE | 2019-04-02 08:13 | NUR ---
LOC AWAKE NO PULMONARY DISTRESS NOTED GOOD CHEST RISE SATURATION 98% ON SUPPLEMENTAL OXYGEN AT 3 LPM VIA NC [employer] V60 (#1144) BIPAP AT BEDSIDE PER NOC RT PATIENT REFUSING TO WEAR
[2019-04-02] MEDS: amLODIPine 5 MG TAB PO SCH (09:00)
[2019-04-02] MEDS: SENNA 8.6 MG TAB PO SCH ×2 (09:00→21:00)
[2019-04-02] MEDS: LACTOBACILLUS RHAMNOSUS GG 1 EACH CAP PO SCH (09:00)
[2019-04-02] MEDS: VALPROATE SODIUM 250 MG in NACL 0.9% 100 ML IV SCH ×2 (09:31→21:35)
--- NOTE | 2019-04-02 10:21 | NUR ---
NOTIFIED DR. PAULSON ABOUT PT'S ABNORMAL AM LABS, DR SAID HE WILL ORDER SUPPLEMENTS FOR PT
--- NOTE | 2019-04-02 10:30 | NUR ---
Pt observed to be gurgling. Attempted to suction oral cavity but pt clamps her mouth shut everytime yanluuer is introduced, does not follow commands. Pt awake, no SOB, no cough observed. HOB kept elevated @ 30degrees. Sarbjit RT notified & will see pt if nasotrach suctioning is needed.
[2019-04-02] MEDS ORDERED: KCL 20 MEQ/WATER INJ PREMIX 200 ML IV ONE (13:35)
[2019-04-02] MEDS ORDERED: SODIUM PHOSPHATE 15 MMOLE in NACL 0.9% 250 ML IV ONE (13:35)
--- NOTE | 2019-04-02 13:35 | NUR ---
CALLED DR. JULIO C PAULSON IN REGARDS TO SPUTUM SAMPLE MD TO PLACE ORDER FOR COLLECTION
--- NOTE | 2019-04-02 14:10 | NUR ---
PATIENT EXHIBITING STRONG PRODUCTIVE COUGH DURING [facility] THERAPY OROPHARYNGEAL SUCTION FOR MODERATE THICK TO SCATTERED YELLOW SECRETIONS
--- NOTE | 2019-04-02 14:20 | NUR ---
CALLED TO RE-ORDER SOFT BILATERAL WRIST RESTRAINTS FOR PT D/T CONTINUES RESTLESSNESS, AGITATION, SCREAMING, TRYING TO PULL OUT LINES AND EQUIPMENT. AT RISK FOR INJURY TO SELF AND INTERFERENCE WITH MEDICAL CARE. SAID HE WILL RE-ORDER
--- NOTE | 2019-04-02 14:30 | NUR ---
MAGNESIUM RIDER IVP GIVEN AT 25ML/HR
--- NOTE | 2019-04-02 14:55 | NUR ---
S.T. BEDSIDE SWALLOW EVAL COMPLETED See report for details. Pt presents with severe oropharyngeal dysphagia c/b lingual protrusion and fasciulations at rest, prior to initiation of P.O. trials, inability to procure oral bolus and manipulate with A-P propulsion. Severely delayed pharyngeal swallow response of 15 seconds and diminished laryngeal elevation during swallow with consistent wet vocal quality prior to and after swallow response. Suspect silent aspiration. Recommend: - Continue strict NPO with non-oral means of nutrition, hydration and meds. Pt does not present with strong rehab potential at this time. No further tx indicated. Pt is at high risk of aspiration. DC to [facility]. Time [id number]
[2019-04-02] MEDS ORDERED: MAG SULF 2000 MG/WATER PREMIX 50 ML IV SCH (15:00)
[2019-04-02 15:15] LABS: FOLIC ACID 7.6 ng/mL (>3.0)
[2019-04-02 16:00] VITALS: BP 157/85
--- NOTE | 2019-04-02 16:15 | NUR ---
Dr Bryan at bedside with request for nurse to notify him when family comes to visit.
--- NOTE | 2019-04-02 16:20 | NUR ---
OROPHARYNGEAL SUCTION FOR MODERATE SEMI THICK YELLOW SECRETIONS TOLERATED PROCEDURE WELL WITHOUT INCIDENT
--- NOTE | 2019-04-02 17:30 | NUR ---
[id number] at bedside visiting pt. Notified Dr Cordero d/t Dr Bryan already left for the day. Per Dr Cordero, request for family to come in at 0800 tomorrow so attending physician can speak with family & DPOA. [id number] notified & agree to come in at 0800.
[2019-04-02] MEDS ORDERED: POTASSIUM PHOSPHATE 15 MM in NACL 0.9% 250 ML IV SCH (18:00)
--- NOTE | 2019-04-02 19:19 | NUR ---
RECEIVED REPORT FORM HERNANDO RN AND KIAH RN DAYSHIFT NURSES AT BEDSIDE FOR CONTINUITY OF CARE, PT IN STABLE CONDITION.
--- NOTE | 2019-04-02 19:35 | NUR ---
GAVE BEDSIDE REPORT TO PARKING INSPECTOR RN, PT IN STABLE CONDITION
[2019-04-02 20:00] VITALS: BP 150/97
--- NOTE | 2019-04-02 20:00 | NUR ---
PT IN BED AOX1,WITH HX OF DEMENTIA. SKIN INTACT WITH 2 LITERS VIA N/C. PT ALSO HAS SOFT WRIST RESTRAINTS TO KEEP FROM PULLING OUT FLOWERS CATHETER, TELEMONITORING, AND N/C. PT WAS TURNED REPOSITIONED AND SUCTION X1. V/S FOLLOWS T 98.7 P 82 R 18 B/P 159/98 02 99% ON ROOM AIR.
--- NOTE | 2019-04-02 20:55 | NUR ---
PATIENT IS UNABLE TO COMPREHEND/ COORDINATE BREATHS TO PERFORM INCENTIVE SPIROMETRY. RN SERAFIN MCKEON.
[2019-04-02] MEDS: traZODone 50 MG TAB PO SCH (21:00)
[2019-04-02] MEDS: ATORVASTATIN 20 MG TAB PO SCH (21:00)
[2019-04-02] MEDS: MIRTAZAPINE 15 MG TAB PO SCH (21:00)
[2019-04-02] MEDS: GABAPENTIN 100 MG CAP PO SCH (21:00)
[2019-04-02] MEDS: MELATONIN 3 MG TAB PO SCH (21:00)
--- NOTE | 2019-04-02 22:00 | NUR ---
PTNPO AND UNABLE TO SWALLOW ALL ORAL PILLS HELD AT THIS TIME. PT WAS SUCTIONED X1 AND TURNED. ALL FALLS AND ASPIRATION PRECAUTIONS IN PLACE. SOFT WRIST RESTRAINTS WERE RELEASED FOR 10 MINUTES. PT TRIED TO PULL ON EQUIPMENT. RESTRAINTS WERE PLACED BACK ON WRISTS. ORAL CARE PROVIDED, HOWEVER PT BITES THE YANKAUER AND IS DIFFICULT TO SUCTION.
[2019-04-03] VITALS: BP 159/98
--- NOTE | 2019-04-03 | NUR ---
PT IN BED RESTRAINTS RELEASED SHORTLY AND SKIN CHECKED, NO INJURIES NOTED. SUPPLEMENTAL 02 PROVIDED VIA N/C. BRENNAN KILLIAN ORDERED.
--- NOTE | 2019-04-03 00:30 | NUR ---
PT N BED ALL FALLS AND ASPIRATION PRECAUTIONS IN PLACE. V/S FOLLOWS T 97.7 P 92 R 18 B/P 150/97 02 98% WITH 2 LITERS VIA N/C. PT SUCTIONED AND REPOSITIONED.
[2019-04-03] MEDS: PIPER/TAZO 2.25GM/D5W PREMIX 50 ML IV SCH ×4 (00:34→18:11)
[2019-04-03] MEDS: DEXT 5% /NACL 0.9% 1,000 ML IV SCH ×3 (02:00→20:51)
--- NOTE | 2019-04-03 02:00 | NUR ---
RT CALLED TO SUCTION PT. PT SUCTIONED NASALLY RT SAID THAT SHE DIDN'T GET MUCH SECRETIONS. OT ALSO SUCTIONED ORALLY. N/C IN [PLACE DELIVERING 2 LITERS SUPPLEMENTAL O2. PT REPOSITIONED. SKIN INTACT
[2019-04-03 04:00] VITALS: BP 128/66
--- NOTE | 2019-04-03 04:00 | NUR ---
PT IN BED NO S/S OF PAin or distress noted, v/s as follows t 97.0 p 64 r 18 b/p 128/66 02 98% on room air.
[2019-04-03] MEDS: LEVOTHYROXINE 0.088 MG TAB PO SCH (06:30)
[2019-04-03 06:48] LABS: BASOPHILS % (AUTO) 0.3 % (0.0-2.0); EOSINOPHILS % (AUTO) 0.3 % (0.0-4.0); HEMATOCRIT 30.3 % (36-48); HEMOGLOBIN 9.9 g/dL (12.0-16.0); LYMPHOCYTES # (AUTO) 1.9 K/uL (2.5-16.5); LYMPHOCYTES % (AUTO) 37.9 % (20.5-51.1); MEAN CORPUSCULAR HEMOGLOBIN 31 pg (27-31); MEAN CORPUSCULAR HGB CONC 33 g/dL (33-37); MEAN CORPUSCULAR VOLUME 94.6 fL (80-94); MONOCYTES # (AUTO) 0.7 K/uL (0.8-1.0); MONOCYTES % (AUTO) 14.8 % (1.7-9.3); NEUTROPHILS # (AUTO) 2.3 K/uL (1.8-7.7); NEUTROPHILS % (AUTO) 46.7 % (42.2-75.2); PLATELET COUNT (AUTO) 286 K/uL (140-450); RED CELL DISTRIBUTION WIDTH 14.8 % (11.6-13.7)
[2019-04-03 07:05] LABS: ANION GAP 10.5 (8-16); CARBON DIOXIDE 30.8 mmol/L (21-32); CHLORIDE 106 mmol/L (98-107); CREATININE 0.9 mg/dL (0.6-1.3); GLUCOSE 64 mg/dL (74-106); POTASSIUM 3.3 mmol/L (3.5-5.1); SODIUM SERUM 144 mmol/L (136-145); UREA NITROGEN, BLOOD 6 mg/dL (7-18)
[2019-04-03 07:09] LABS: MAGNESIUM 1.8 mg/dL (1.8-2.4); PHOSPHORUS 2.4 mg/dL (2.5-4.9)
--- NOTE | 2019-04-03 07:10 | NUR ---
PT FINGERSTICK IS 63, PT GIVEN 50 DEXTROSE IVP VIA PICC LINE ENDORSED TO DAYSHIFT TO MONITOR BLOOD GLUCOSE.
[2019-04-03] MEDS: ALBUTEROL SULFATE/IPRATROPIU 3 ML SOL IH SCH ×3 (07:15→19:09)
--- NOTE | 2019-04-03 07:20 | NUR ---
REPORT GIVEN TO DENNY RN DAYSHIFT NURSE AT BEDSIDE FOR CONTINUITY OF CARE PT IN STABLE CONDITION.
--- NOTE | 2019-04-03 07:21 | NUR ---
RECEIVED BED SIDE REPORT FROM MOTION PICTURE PROJECTIONIST RN, PT SEEN SLEEPING WITH O2 2L NC WITH 02 100%, FAMILY NOT AT BEDSIDE, SKIN INTACT, PICC LINE FLUSHED AND PATENT, IV FLUIDS RUNNING 100ML/HR, FLOWERS STILL IN, RESTRAINTS STILL ON, CHENG CHECK SKIN AND CIRCULATION, BED ALARM ON AND LOW, WILL CONTINUE TO MONITOR
--- NOTE | 2019-04-03 07:33 | NUR ---
PATIENT REFUSED BREATHING TX. SAID SHE WAS NOT FEELING ANY SOB, NURSE IS AWARE. PATIENT SAID MAYBE NEXT ROUND SHE WILL TAKE TX. WILL CONTINUE TO MONITOR Addendum: 04/03/19 at 1237 by Corry Santos RT DISREGARD THE ABOVE NOTES. NOTES WERE ENTERED IN ERROR ON WRONG PATIENT
[2019-04-03] MEDS: BLOOD GLUCOSE MONITORING 1 DEV DEV FS SCH ×4 (07:51→20:45)
[2019-04-03 08:00] VITALS: BP 129/66
[2019-04-03] MEDS: SENNA 8.6 MG TAB PO SCH ×2 (09:00→21:00)
[2019-04-03] MEDS: amLODIPine 5 MG TAB PO SCH (09:00)
[2019-04-03] MEDS: LACTOBACILLUS RHAMNOSUS GG 1 EACH CAP PO SCH (09:00)
[2019-04-03] MEDS: VALPROATE SODIUM 250 MG in NACL 0.9% 100 ML IV SCH ×2 (09:03→20:45)
--- NOTE | 2019-04-03 10:30 | NUR ---
Pt moaning & grimacing during repositioning, no swelling/redness noted during skin assessment. Krxxirnn-uh-wdu Elise at bedside talking to pt. Pt able to mumble "all over, it hurts so bad". Pt repositioned for comfort. Pt with order for po acetaminophen but currently NPO d/t aspiration precaution. Dr. Bryan notified of pain assessment. Per physician, he will order IVP pain med.
--- NOTE | 2019-04-03 10:48 | NUR ---
WAS CALLED TO PATIENTS ROOM BY RN FOR SUCTIONING OF PATIENT. WAS ABLE TO SUCTION A SMALL AMOUNT OF WORKMAN THICK SECRETIONS
--- NOTE | 2019-04-03 11:15 | NUR ---
Pt asleep at this time, respirations even & nonlabored, FLACC 0. Abhuhbxq-cr-qau at bedside states no need for pain med for now. Will cont to asses pt for signs of pain.
--- NOTE | 2019-04-03 11:51 | NUR ---
NOTIFIED ABOUT PT'S BLOOD SUGAR 61, SAID HE WILL ADJUST PARAMETERS TO GIVE D50, WILL CONTINUE TO MONITOR Addendum: 04/03/19 at 1152 by Ole Clark RN ADDENDUM: PT RESTING IN BED, RESPONSIVE TO AUDITORY STIMULI, NO TREMORS OR DIAPHORESIS NOTED.
[2019-04-03 12:00] VITALS: BP 131/65
[2019-04-03] MEDS ORDERED: DEXTROSE 50% 50 ML SYR IVP SCH (12:00)
--- NOTE | 2019-04-03 12:30 | NUR ---
GOT CALL FROM SARY FROM BLOOD BANK ABOUT NEEDING ANOTHER SPUTUM SAMPLE BECAUSE LAST ONE WAS CONTAMINATED, WILL CALL TO PUT IN ORDER FOR ANOTHER SPUTUM CULTURE
--- NOTE | 2019-04-03 12:35 | NUR ---
TALKED TO AND SHE SAID THAT SHE WILL PUT IN THE ORDER
[2019-04-03] MEDS: KCL 20 MEQ/WATER INJ PREMIX 200 ML IV SCH ×2 (13:39→16:22)
[2019-04-03 16:00] VITALS: BP 137/70
--- NOTE | 2019-04-03 17:00 | NUR ---
TOOK PT OFF SOFT BILATERAL WRIST RESTRAINTS, SKIN AND CIRCULATION REMAINS FREE FROM INJURY, EDUCATED PT ON THE NEED TO NOT PICK AT PICC LINE OR FLOWERS. PT RESTING IN BED, NO EPISODES OF PT PULLING ON LINES OR FLOWERS. FAMILY AT BEDSIDE. WILL CONTINUE TO MONITOR PT
--- NOTE | 2019-04-03 17:16 | NUR ---
Pt noted to be gurgling from throat. HOB up at 45degrees, no SOB. Pt with weak attempts to cough. Oropharyngeal cavity suctioned with min white secretions. SaO2 98-100% on O2@ 2Lpm via n/c. Will cont to monitor.
--- NOTE | 2019-04-03 19:04 | NUR ---
GAVE BEDSIDE REPORT TO AUTOMOTIVE WINDOW TINTER RN, PT IN STABLE CONDITION
--- NOTE | 2019-04-03 19:17 | NUR ---
RECEIVED REPORT AT BEDSIDE BY SHANNON RN DAYSHIFT AND DENNY DE LEON DAYSHIFT NURSES AT BEDSIDE FOR CONTINUITY OF CARE, PT IN STABLE CONDITION.
--- NOTE | 2019-04-03 19:20 | NUR ---
RECEIVED PATIENT ON 3L NASAL CANNULA, PULSE OX SAT 100%. SCHEDULED BREATHING TREATMENT ADMINISTERED. TOLERATED TX WELL, NO ADVERSE SIDE EFFECTS. PLACED BACK ON NASAL CANNULA, TITRATED OXYGEN TO 2L, PULES OX SAT 99%. RN NOTIFIED. NO RESPIRATORY DISTRESS NOTED AT THIS TIME. WILL CONTINUE TO MONITOR.
[2019-04-03 20:00] VITALS: BP 125/71
--- NOTE | 2019-04-03 20:00 | NUR ---
PT IN BED ALL FALLS AND ASPIRATION PRECAUTIONS IN PLACE. PT IS AOX1, SKIN INTACT AND HOB UP 35%. RT IS AT BEDSIDE GIVEN NEB TREATMENT. PT LUNG SOUNDS RHONCI AND COARSE CRACKLES. PT HAS 3 LITERS N/C AND RT TO TITRATE DOWN TO 2 LITERS VIA N/C. PT SUCTION X2, BUT PT BITES YANKAUER AND MAKES IT DIFFICULT TO SUCTION PT. PT V/S FOLLOWS T 97.5 P 55 R 18 B/P 125/71 02 100% ON 3 LITERS VIA N/C. PT HAS PICC LINE DOUBLE LUMEN ON LEFT UPPER ARM, WHICH IS INTACT AND RUNNING D5N/S AT 100MLS /HR. PT FINGERSTICK IS 77.
[2019-04-03] MEDS: MIRTAZAPINE 15 MG TAB PO SCH (21:00)
[2019-04-03] MEDS: GABAPENTIN 100 MG CAP PO SCH (21:00)
[2019-04-03] MEDS: traZODone 50 MG TAB PO SCH (21:00)
[2019-04-03] MEDS: ATORVASTATIN 20 MG TAB PO SCH (21:00)
[2019-04-03] MEDS: MELATONIN 3 MG TAB PO SCH (21:00)
--- NOTE | 2019-04-03 21:00 | NUR ---
PT IN BED ALL FALLS AND ASPIRATION PRECAUTIONS N PLACE, PT TURNED AND REPOSITIONED WELL SUCTIONED X2. PT GIVEN ORDERED DEPACON IVPB ORDERED. D5N/S FLUIDS REPLACED WELL.PT RESTING BUT AROUSABLE TO TOUCH, NO C/O VOICED . PT ALSO GIVEN ORDERED HEPARIN FOR DVT PREVENTION. PT NOT ABLE TO TAKE ANY ORAL MEDICATION DUE TO HER DIFFICULTY WITH SWALLOWING.
[2019-04-04] VITALS (8 sets, daily range): BP systolic 123–162; BP diastolic 58–90
--- NOTE | 2019-04-04 | NUR ---
ZOSYN HUNG ORDERED, PT WAS TURNED AND REPOSITIONED. FLOWERS CATHETER INTACT AND DRAINING YELLOW URINE. V/S FOLLOWS T 97.3 P 60 R 18 B/P 132/66 02 98% WITH 2 LITERS VIA N/C. NO S/S F PAIN OR DISTRESS NOTED.
[2019-04-04] MEDS: PIPER/TAZO 2.25GM/D5W PREMIX 50 ML IV SCH ×5 (00:26→21:17)
--- NOTE | 2019-04-04 02:00 | NUR ---
PT TURNED AND REPOSITIONED NO S/S OF PAIN OR DISTRESS NOTED. N/C AT 2 LITERS 02. FLOWERS CATHETER IN PLACE AND DRAINING YELLOW URINE. PICC LINE INTACT AND RUNNING D5 AT 100MLS/HR. ALL ASPIRATIONS AND FALLS PRECAUTIONS OBSERVED.
--- NOTE | 2019-04-04 04:30 | NUR ---
PT IN BED ALL FALLS AND ASPIRATION PRECAUTIONS OBSERVED. V/S FOLLOWS T 97.1 P 52 R 18 B/P 123/60 02 98% ON 2 LITERS VIA N/C. PT TURNED AND REPOSITIONED. SKIN INTACT AND AL FALLS AND ASPIRATION PRECAUTIONS OBSERVED.
[2019-04-04] MEDS: BLOOD GLUCOSE MONITORING 1 DEV DEV FS SCH ×4 (06:29→21:02)
[2019-04-04] MEDS: LEVOTHYROXINE 0.088 MG TAB PO SCH (06:29)
[2019-04-04] MEDS: ALBUTEROL SULFATE/IPRATROPIU 3 ML SOL IH SCH ×3 (06:31→20:45)
--- NOTE | 2019-04-04 07:25 | NUR ---
REPORT GIVEN TO DEMETRICE DE LEON DAYSHIFT NURSE AT BEDSIDE FOR CONTINUITY OF CARE, PT IN STABLE CONDITION.
--- NOTE | 2019-04-04 07:30 | NUR ---
RECEIVED PT FROM BELL SPINNER SOUSAPHONES NURSE, SERAFIN, PT IS ASLEEP LYING ON THE BED, BED ALARM ACTIVATED, BED IN LOW POSITION, PT HAS A FLOWERS CATHETER IN PLACE, DATED, ON O2 AT 2L NC AND HAS A PICC LINE ON THE RT UA DOUBLE LUMEN WITH D5 NS INFUSING AT 100ML/HR, INTACT, NO RESTRAINT APPLIED TO PT AT THIS TIME, ON ASPIRATION PRECAUTION, RESPIRATION IS EVEN AND NO SIGN OF DISTRESS NOTED. WILL CONTINUE TO MONITOR PT.
--- NOTE | 2019-04-04 07:45 | NUR ---
PT IS ASLEEP WITH SIDE RAILS UP AND CALL LIGHT WITHIN REACH, VITAL SIGNS CHECK DONE AND RESULT IS BP 147/58, PULSE IS 55, O2 SATURATION 99%, RESPIRATION IS 16/IN AND TEMPERATURE IS 97.3, NO SIGN OF DISTRESS NOTED AND RESPIRATION IS EVEN AT O2 2L NC. WILL CONTINUE TO MONITOR PT.
[2019-04-04 07:57] LABS: MAGNESIUM 1.6 mg/dL (1.8-2.4); PHOSPHORUS 2.4 mg/dL (2.5-4.9)
[2019-04-04 08:00] LABS: ANION GAP 4.8 (8-16); CARBON DIOXIDE 32.9 mmol/L (21-32); CHLORIDE 110 mmol/L (98-107); GLUCOSE 74 mg/dL (74-106); HEMATOCRIT 27.6 % (36-48); MEAN CORPUSCULAR HEMOGLOBIN 31 pg (27-31); MEAN CORPUSCULAR HGB CONC 33 g/dL (33-37); MEAN CORPUSCULAR VOLUME 95.3 fL (80-94); PLATELET COUNT (AUTO) 246 K/uL (140-450); POTASSIUM 3.7 mmol/L (3.5-5.1); RED BLOOD CELL COUNT(AUTO) 2.89 MIL/uL (4.20-5.40); RED CELL DISTRIBUTION WIDTH 15.1 % (11.6-13.7); SODIUM SERUM 144 mmol/L (136-145); UREA NITROGEN, BLOOD 5 mg/dL (7-18); WHITE BLOOD COUNT (AUTO) 4.1 K/uL (4.8-10.8)
[2019-04-04] MEDS: DEXT 5% /NACL 0.9% 1,000 ML IV SCH ×2 (08:20→23:08)
[2019-04-04] MEDS: SENNA 8.6 MG TAB PO SCH ×2 (09:00→21:00)
[2019-04-04] MEDS: LACTOBACILLUS RHAMNOSUS GG 1 EACH CAP PO SCH (09:00)
[2019-04-04] MEDS: amLODIPine 5 MG TAB PO SCH (09:00)
[2019-04-04 09:17] LABS: BASOPHILS % (MANUAL) 0 % (0-2); EOSINOPHILS % (MANUAL) 0 % (0-4); LYMPHOCYTES % (MANUAL) 49 % (20-46); MONOCYTES % (MANUAL) 8 % (5-12)
[2019-04-04] MEDS: VALPROATE SODIUM 250 MG in NACL 0.9% 100 ML IV SCH ×2 (09:22→20:59)
[2019-04-04] MEDS ORDERED: TPN PER PHARMACY MC PRN (12:10)
--- NOTE | 2019-04-04 12:34 | NUR ---
PT IS AWAKE AND TALKING TO SON ON THE BEDSDIE, IV ZOSYN WAS GIVEN VIA IVPB AND PT TOLERATED IT. WILL MONITOR PT.
[2019-04-04] MEDS ORDERED: POTASSIUM PHOSPHATE 15 MM in NACL 0.9% 250 ML IV SCH ×2 (14:00→18:00)
[2019-04-04] MEDS: MAG SULF 2000 MG/WATER PREMIX 100 ML IV SCH ×5 (14:04→21:09)
--- NOTE | 2019-04-04 14:09 | NUR ---
PT IS ASLEEP ON THE BED WITH DAUGHTER ON THE BEDSIDE, MAGNESIUM RIDER WAS STARTED FOR THE MG LEVEL OF 1.6. WILL MONITOR PT.
--- NOTE | 2019-04-04 16:05 | NUR ---
INFORMED DR. RAMIREZ OF THE PT'S BP RESULT OF 163/78 AND PULSE IS 67, THEN WAS RECHECKED AFTER 10 MINS AND RESULT IS 162/90 AND PULSE IS 74, DR. RAMIREZ WAS INFORMED AND MD ORDERED TO GIVE PT MORPHINE IV PUSH. ACKNOWLEGED AND WILL CARRY OUT MD ORDER.
--- NOTE | 2019-04-04 16:10 | NUR ---
SPUTUM INDUCTION WAS DONE TO PT NOW BY RESPIRATORY THERAPIST. CANDELARIA Addendum: 04/04/19 at 1651 by Stephanie Lemons RN SPUTUM INDUCTION WAS DONE TO PT NOW BY THE RESPIRATORY THERAPIST, SPUTUM WAS COLLECTED AND SENT TO LAB.
[2019-04-04] MEDS: MORPHINE SULFATE 2 MG/ML SYR IVP PRN ×2 (16:14→22:39)
--- NOTE | 2019-04-04 16:48 | NUR ---
PT'S BLOOD GLUCOSE WAS CHECKED AND RESULT IS 61, DR. REED WAS INFORMED IN BEHALF OF DR. RAMIREZ AND WAS ASKED IF DEXTROSE 50% WILL BE GIVEN TO PT AND MD AGREED. WILL CARRY OUT ORDER.
--- NOTE | 2019-04-04 16:51 | NUR ---
DEXTROSE 50% INJECTION GIVEN IV PUSH WAS ADMINISTERED TO PT NOW FOR THE BLOOD GLUCOSE RESULT OF 61. WILL RE-ASSESS AND MONITOR PT.
--- NOTE | 2019-04-04 17:10 | NUR ---
PT'S BP WAS CHECKED AND IS 127/67, PULSE IS 67, TEMPERATURE IS 97.6 AND O2 SATURATION IS 98%, RESPIARATION IS 18/MIN, NO SIGN OF DISTRESS NOTED AND WILL MONITOR PT.
--- NOTE | 2019-04-04 17:54 | NUR ---
A TELEPHONE CONSENT FOR EGD AND PEG INSERTION WAS OBTAINED FROM THE PT'S SON, JUANIS NEAL, CALLED IN TEL NO. [phone], WITNESSED BY CHARGE NURSE, CANDI HIGUERA. PROCEDURE AND QUESTIONS WERE ANSWERED BY JAMES TOWNSEND. CONSENT ATTACHED TO CHART
[2019-04-04] MEDS ORDERED: FUROSEMIDE 20 MG/2 ML VIAL IVP SCH (18:00)
[2019-04-04] MEDS ORDERED: KCL 20 MEQ/WATER INJ PREMIX 100 ML IV SCH (18:00)
--- NOTE | 2019-04-04 18:22 | NUR ---
PT WAS REPOSITIONED AND CLEANED AND MADE COMFORTABLE, MEDICATION WAS GIVEN VIA IV PUSH, BP WAS CHECKED AND RESULT IS 129/73, PULSE IS 62, NO SIGN OF DISTRESS NOTED AND WILL MONITOR PT.
--- NOTE | 2019-04-04 18:45 | NUR ---
BLOOD GLUCOSE CHECK WAS DONE AND RESULT IS 127.
--- NOTE | 2019-04-04 19:11 | NUR ---
ENDORSED PT TO LAWN SERVICE MANAGER NURSEROMA FOR CONTINUITY OF CARE, PT IS STABLE AT THIS TIME.
--- NOTE | 2019-04-04 19:20 | NUR ---
RECEIVED FROM AM RN IN BED SLEEPING. UNABLE TO VERBALIZE AT THIS TIME. PREFER TO BE SLEEPING. PER AM RN SHE WAS TALKING TO FAMILY MEMBERS THIS AFTERNOON. NEEDS WILL BE ANTICIPATED AND WILL BE MET. DX. OF PNA AND CHANGE OF LOC. FOR PEG PLACEMENT TOMORROW PER AM RN. ON 2LPM/NC 02 SAT AT 100 %.
[2019-04-04] MEDS: ATORVASTATIN 20 MG TAB PO SCH (21:00)
[2019-04-04] MEDS ORDERED: traZODone 50 MG TAB PO SCH (21:00)
--- NOTE | 2019-04-04 21:10 | NUR ---
MAG RIDER ORDERED FOR 2 BAGS WAS ADMINISTERED BY AM RN ENDORSED . RE-CONFIRMED WITH CHARGE NURSE. AWARE.
--- NOTE | 2019-04-04 21:12 | NUR ---
RESPIRATORY THERAPIST IN HERE AND RENDERED BREATHING TREATMENT TO PT. 02 SAT WITH 2LPM/NC AT THIS TIME IS 99 %. FLOWERS CATHETER DRAINING WELL WITH CLEAR TYRON YELLOW URINE. NEEDS WILL BE ANTICIPATED . TELEMETRY MONITORING.
--- NOTE | 2019-04-04 21:27 | NUR ---
TALKED TO RESIDENT MD VALLADARES AND INFORMED HER RE: MAG RIDER ORDER OF Q 2H. PER RESIDENT TO " HOLD NEXT MAG RIDER ORDERS AND SHE WILL RE-CHECK MAG LEVEL AGAIN ".
--- NOTE | 2019-04-04 21:34 | NUR ---
CALLED PHARMACY AND RECONFIRMED ORDER DOSING OF MAG RIDER Q2H. PER BI THE PREVIOUS CERTIFIED CODING SPECIALIST MUST HAVE ENTERED WRONG TIMING. "I WILL RE-DO IT. " INFORMED RESIDENT MD VALLADARES OF CORRECTION" NO FURTHER ORDER GIVEN.
--- NOTE | 2019-04-04 22:01 | NUR ---
INFORMED RESIDENT MD VALLADARES RE: KRIDER ORDERED FOR 1800 AND 0600. "HOLD IT FOR NOW AND WE WILL RE-CHECK IN AM K LEVEL AND GO FROM THERE ". CHARGE NURSE AWARE .
--- NOTE | 2019-04-04 22:10 | NUR ---
K LEVEL FOR TODAY 3.7 - RESIDENT MD WAS AWARE OF NORMAL VALUE.
--- NOTE | 2019-04-05 00:18 | NUR ---
PT. AT THIS TIME. SLEEPING. VITAL SIGNS TAKEN. OPENED HER EYES WHEN TOUCHED. TURNED BY CNAS Q 2H. PILLOW SUPPORT TO PRESSURE AREAS. TOTAL CARE. TELEMETRY MONITORING. ON AT 2LPM/NC. F/C DRAINING WELL WITH TYRON COLORED URINE . NEEDS WILL BE ANTICIPATED AND WILL BE MET.
[2019-04-05 00:28] VITALS: BP 125/60
[2019-04-05] MEDS: BLOOD GLUCOSE MONITORING 1 DEV DEV FS SCH ×4 (01:54→21:40)
--- NOTE | 2019-04-05 01:55 | NUR ---
PT. SLEEPING WELL AT THIS TIME. NO RESTLESSNESS NOTED. TELEMETRY MONITORING. 02 SAT 100 % WITH 02 AT 2LPM/NC.
--- NOTE | 2019-04-05 03:20 | NUR ---
PT. SLEEPING. TELEMETRY MONITORING. 02 SAT AT 100 % WITH 02 AT 2LPM/NC. NEEDS ANTICIPATED. FLOWERS CATHETER DRAINING WELL WITH TYRON COLORED URINE. TELEMETRY MONITORING. TURNED Q 2H BY CNAS WITH PILLOW SUPPORT TO PRESSURE AREAS.
[2019-04-05 04:14] VITALS: BP 119/56
[2019-04-05] MEDS: PIPER/TAZO 2.25GM/D5W PREMIX 50 ML IV SCH ×3 (04:41→21:26)
[2019-04-05 05:13] LABS: HEMATOCRIT 28.2 % (36-48); HEMOGLOBIN 9.3 g/dL (12.0-16.0); MEAN CORPUSCULAR HEMOGLOBIN 32 pg (27-31); MEAN CORPUSCULAR HGB CONC 33 g/dL (33-37); MEAN CORPUSCULAR VOLUME 95.3 fL (80-94); PLATELET COUNT (AUTO) 259 K/uL (140-450); RED BLOOD CELL COUNT(AUTO) 2.96 MIL/uL (4.20-5.40); RED CELL DISTRIBUTION WIDTH 15.1 % (11.6-13.7); WHITE BLOOD COUNT (AUTO) 3.7 K/uL (4.8-10.8)
[2019-04-05 05:31] LABS: ANION GAP 5.3 (8-16); CARBON DIOXIDE 35.2 mmol/L (21-32); CHLORIDE 109 mmol/L (98-107); GLUCOSE 73 mg/dL (74-106); POTASSIUM 3.5 mmol/L (3.5-5.1); SODIUM SERUM 146 mmol/L (136-145); UREA NITROGEN, BLOOD 5 mg/dL (7-18)
[2019-04-05 05:34] LABS: MAGNESIUM 2.1 mg/dL (1.8-2.4); PHOSPHORUS 2.7 mg/dL (2.5-4.9)
[2019-04-05] MEDS: DEXT 5% /NACL 0.9% 1,000 ML IV SCH (05:35)
[2019-04-05 05:42] LABS: EOSINOPHILS % (MANUAL) 2 % (0-4); LYMPHOCYTES % (MANUAL) 60 % (20-46); MONOCYTES % (MANUAL) 13 % (5-12)
--- NOTE | 2019-04-05 05:55 | NUR ---
PT. AM PERSONAL HYGIENE RENDERED BY CNAS. TURNED Q 2H. PILLOW SUPPORT TO PRESSURE AREAS. NEEDS ANTICIPATED AND MET. WILL ENDORSE TO AM RN FOR CONTINUITY OF CARE. TOTAL CARE. AM BLOOD WORKS DONE ORDERED.
[2019-04-05] MEDS ORDERED: KCL 20 MEQ/WATER INJ PREMIX 100 ML IV SCH (06:00)
--- NOTE | 2019-04-05 06:13 | NUR ---
INFORMED RESIDENT RE: K LEVEL OF 3.5 AND STATED" WE WILL D/C IT BECAUSE IT IS NORMAL LEVEL" MADE CHARGE NURSE AWARE OF IT.
[2019-04-05] MEDS ORDERED: LEVOTHYROXINE 0.1 MG TAB PO SCH (06:30)
[2019-04-05] MEDS: ALBUTEROL SULFATE/IPRATROPIU 3 ML SOL IH SCH ×3 (06:49→19:26)
--- NOTE | 2019-04-05 07:31 | NUR ---
ENDORSED TO THE NEXT RN FOR CONTINUITY OF CARE. AWAKE AND ALERT. NO SOB. NO RESTLESSNESS.
--- NOTE | 2019-04-05 07:35 | NUR ---
RECEIVED PT FROM RN CLINICAL RESEARCH NURSELUIS FELIPE, PT IS AWAKE AND LYING ON THE BED WITH SIDE RAILS UP AND CALL LIGHT WITHIN REACH, BED IN LOW POSITION, FALL AND SAFETY PRECAUTION ENFORCED, PT HAS A RT UA PICC LINE DOUBLE LUMEN, WITH D5NS INFUSING AT 20ML/HR, PT'S LAST BLOOD GLUCOSE CHECK PER RN CLINICAL RESEARCH NURSE IS 76. NO SIGN OF DISTRESS NOTED AND WILL CONTINUE TO MONITOR PT.
[2019-04-05 08:00] VITALS: BP 126/68
[2019-04-05] MEDS: fentaNYL 0.05 MG/ML VIAL ONE ×2 (08:14→09:07)
[2019-04-05] MEDS: MIDAZOLAM 2 MG/2 ML VIAL ONE ×2 (08:14→09:10)
--- NOTE | 2019-04-05 08:18 | NUR ---
PT IS ASLEEP AND RESPIRATION IS EVEN, VITAL SIGNS CHECKED AND BP IS 120/68, PULSE IS 58, O2 SATURATION IS 98% AND TEMPERATURE IS 98, RESPIRATION IS 18/MIN AND EVEN, IV MEDICATION WAS GIVEN AND PT TOLERATED IT. NAV LOPEZ PT.
[2019-04-05] MEDS ORDERED: FUROSEMIDE 20 MG/2 ML VIAL IVP SCH (09:00)
[2019-04-05] MEDS: SENNA 8.6 MG TAB PO SCH (09:00)
[2019-04-05] MEDS ORDERED: amLODIPine 5 MG TAB PO SCH (09:00)
[2019-04-05] MEDS: LACTOBACILLUS RHAMNOSUS GG 1 EACH CAP PO SCH (09:00)
--- NOTE | 2019-04-05 09:00 | NUR ---
PT IS OFF THE UNIT NOW FOR A PEG TUBE INSERTION.
[2019-04-05] MEDS ORDERED: MORPHINE SULFATE 2 MG/ML SYR IVP PRN (09:05)
[2019-04-05] MEDS: FLUMAZENIL 0.5 MG/5 ML VIAL IVP ONE ×2 (09:20→11:30)
[2019-04-05] MEDS ORDERED: POTASSIUM CHLORIDE 20% 40 MEQ/15 ML UDC GT SCH (09:49)
--- NOTE | 2019-04-05 10:50 | NUR ---
CALLED TO PTS ROOM TO NT SXN PT MODERATE AMT OF THICK WHITE SECRETIONS MOISES SURESH AT BEDSIDE
[2019-04-05] MEDS: VALPROATE SODIUM 250 MG in NACL 0.9% 100 ML IV SCH (11:00)
--- NOTE | 2019-04-05 11:10 | NUR ---
04/05/19 RD FOLLOW UP COMPLETED PLEASE REFER TO NUTRITION PROGRESS NOTE UNDER CARE ACTIVITY FOR ESTIMATED NUTRITION NEEDS. RD RECOMMENDATIONS: 1. CONTINUE NPO MEDICALLY APPROPRIATE. 2. IF/WHEN MEDICALLY APPROPRIATE, CONSIDER INITIATING ENTERAL FEEDING ONCE MEDICALLY APPROPRIATE TO USE PEG TUBE. --- CONSIDER GLUCERNA 1.2 AT STARTING RATE OF 10 ML/HR, INCREASE BY 10 ML/HR Q4H TOLERATED UNTIL GOAL RATE OF 60 ML/HR IS REACHED. AT GOAL RATE OF 60 ML/HR, TF WILL PROVIDE 1440 ML TOTAL VOLUME, 1728 KCAL, AND 86 GM PROTEIN TO MEET 95% EST KCAL AND 78% EST PROTEIN NEEDS. 5. RD TO FOLLOW-UP 2-3 DAYS, HIGH RISK NATALIE LING MS, RDN Addendum: 04/05/19 at [address] CORRECTION: RD RECOMMENDATIONS: 1. CONTINUE TF JEVITY 1.2 AT 20 ML/HR WITH FWF 30 ML Q6H TOLERATED. 2. CONSIDER JEVITY 1.2 GOAL RATE OF 60 ML/HR TO PROVIDE 1440 TOTAL VOLUME, 1728 KCAL, AND 80 GM PROTEIN TO MEET 95% EST LOWER-END KCAL AND > 109% LOWER-END PROTEIN NEEDS. 3. RD TO FOLLOW-UP 2-3 DAYS, HIGH RISK NATALIE LING MS, RDN
[2019-04-05 12:00] VITALS: BP 147/90
--- NOTE | 2019-04-05 13:00 | NUR ---
SOFT WRIST RESTRAINT WAS APPLIED TO PT NOW.
--- NOTE | 2019-04-05 13:12 | NUR ---
IV ZOSYN WAS ADMINISTERED TO PT NOW, PT IS ASLEEP AND NO SIGN OF DISTRESS NOTED. WILL MONITOR PT.
--- NOTE | 2019-04-05 14:40 | NUR ---
PT WAS STARTED ON TUBE FEEDING OF JEVITY 1.2 AT A RATE OF 20ML/HR, WITH WATER FLUSHING OF [id number]. WILL CHECK RESIDUAL AND MONITOR PT.
[2019-04-05 16:00] VITALS: BP 150/67
--- NOTE | 2019-04-05 17:04 | NUR ---
CALLED TO PTS ROOM BY REQUEST OF FAMILY TO SNX PT RN CANDI AT BEDSIDE NT SXN PT SMALL AMT OF VERY THICK WHITE SECRETIONS, CALLED TO TO ORDER MUCOMYST 10% 2CC Q6 WITH BREATHING TX FOR TWO DAY ALSO CHANGED BREATHING TX TO Q6.
[2019-04-05] MEDS: ACETYLCYSTEINE 10% (100 MG/ML) 100 MG/ML VIAL INH SCH (18:00)
--- NOTE | 2019-04-05 19:10 | NUR ---
ENDORSED PT TO AUTOMOTIVE PORTER NURSE FOR CONTINUITY OF CARE. PT IS STABLE AT THIS TIME.
--- NOTE | 2019-04-05 19:11 | NUR ---
RECEIVED BEDSIDE REPORT FROM DAY SHIFT NURSE, PT IN STABLE CONDITION. PICC LINE DOUBLE LUMEN, RUNNING D5NS @20MLS/HR, INTACT, PATENT, ASYMPTOMATIC. FALL AND SAFETY PRECAUTION ENFORCED, NO SIGN OF SOB OR ANY DISTRESS NOTED. G-TUBE FEEDING RUNNING WELL. BED IN LOW POSITION, CALL LIGHT WITHIN REACH. WILL CONTINUE TO MONITOR.
[2019-04-05 20:00] VITALS: BP 139/58
[2019-04-05] MEDS ORDERED: traZODone 50 MG TAB PO SCH (21:00)
[2019-04-05] MEDS ORDERED: ATORVASTATIN 20 MG TAB GT SCH (21:00)
[2019-04-05] MEDS ORDERED: traZODone 50 MG TAB GT SCH (21:00)
--- NOTE | 2019-04-05 21:26 | NUR ---
CHECKED RESIDUAL, 5ML. GIVEN SCHEDULED MED MD ORDERED. PT TOLERATED WELL. WILL CONTINUE TO MONITOR.
[2019-04-05] MEDS: SENNA 8.6 MG TAB GT SCH (21:27)
[2019-04-05] MEDS: DIVALPROEX 250 MG TABEC PO SCH (21:27)
--- NOTE | 2019-04-05 21:40 | NUR ---
CHECKED BS. 96. NO INSULIN COVERAGE NEEDED. BED IN LOW POSITION. CALL LIGHT WITHIN REACH. WILL CONTINUE TO MONITOR.
[2019-04-06] VITALS: BP 148/58
--- NOTE | 2019-04-06 | NUR ---
VS CHECKED. WITHIN PT'S BASELINE. IN STABLE CONDITION. PT SLEEPING IN BED COMFORTABLY. BED IN LOW POSITION. WILL CONTINUE TO MONITOR.
[2019-04-06] MEDS: ALBUTEROL SULFATE/IPRATROPIU 3 ML SOL IH SCH ×2 (01:32→06:21)
--- NOTE | 2019-04-06 02:04 | NUR ---
SPUTUM COLLECTED AND DROPPED OFF AT LAB. VITALS STABLE. NO SOB OR RESPIRATORY DISTRESS.
--- NOTE | 2019-04-06 02:57 | NUR ---
PT SLEEPING IN BED COMFORTABLY. NO S/S OF SOB NOTED. BREATHING EVEN AND UNLABORED. BED IN LOW POSITION. WILL CONTINUE TO MONITOR.
[2019-04-06 04:00] VITALS: BP 153/78
[2019-04-06] MEDS: PIPER/TAZO 2.25GM/D5W PREMIX 50 ML IV SCH ×2 (05:00→13:17)
--- NOTE | 2019-04-06 05:00 | NUR ---
GIVEN ZOSYN DR. ORDERED. PT TOLERATED WELL. WILL CONTINUE TO MONITOR.
[2019-04-06] MEDS: BLOOD GLUCOSE MONITORING 1 DEV DEV FS SCH (05:45)
--- NOTE | 2019-04-06 05:45 | NUR ---
BS CHECKED, 91. NO INSULIN COVERAGE NEEDED. BED IN LOW POSITION.
[2019-04-06] MEDS: ACETYLCYSTEINE 10% (100 MG/ML) 100 MG/ML VIAL INH SCH ×2 (06:00)
[2019-04-06 06:24] LABS: BASOPHILS % (AUTO) 0.3 % (0.0-2.0); EOSINOPHILS # (AUTO) 0.1 K/uL (0-0.4); EOSINOPHILS % (AUTO) 1.4 % (0.0-4.0); HEMATOCRIT 29.9 % (36-48); HEMOGLOBIN 9.8 g/dL (12.0-16.0); LYMPHOCYTES # (AUTO) 1.9 K/uL (2.5-16.5); LYMPHOCYTES % (AUTO) 42.1 % (20.5-51.1); MEAN CORPUSCULAR HEMOGLOBIN 31 pg (27-31); MEAN CORPUSCULAR HGB CONC 33 g/dL (33-37); MEAN CORPUSCULAR VOLUME 94.6 fL (80-94); MONOCYTES # (AUTO) 0.8 K/uL (0.8-1.0); NEUTROPHILS # (AUTO) 1.7 K/uL (1.8-7.7); NEUTROPHILS % (AUTO) 38.2 % (42.2-75.2); PLATELET COUNT (AUTO) 255 K/uL (140-450); RED BLOOD CELL COUNT(AUTO) 3.16 MIL/uL (4.20-5.40); WHITE BLOOD COUNT (AUTO) 4.4 K/uL (4.8-10.8)
[2019-04-06] MEDS ORDERED: LEVOTHYROXINE 0.1 MG TAB GT SCH (06:30)
[2019-04-06 06:43] LABS: ANION GAP 8.3 (8-16); CARBON DIOXIDE 34.3 mmol/L (21-32); CHLORIDE 106 mmol/L (98-107); CREATININE 0.9 mg/dL (0.6-1.3); GLUCOSE 100 mg/dL (74-106); POTASSIUM 3.6 mmol/L (3.5-5.1); SODIUM SERUM 145 mmol/L (136-145); UREA NITROGEN, BLOOD 7 mg/dL (7-18)
[2019-04-06 06:49] LABS: MAGNESIUM 1.7 mg/dL (1.8-2.4); PHOSPHORUS 2.1 mg/dL (2.5-4.9)
--- NOTE | 2019-04-06 07:39 | NUR ---
ENDORSED PT TO DAY SHIFT NURSE. PT IN STABLE CONDITION.
--- NOTE | 2019-04-06 07:40 | NUR ---
RECEIVED REPORT FROM PM NURSE AT BEDSIDE. PT SLEEPING AT THIS TIME. PT HAS TUBEFEEDING, 20ML/HR. PT IS ON SOFT RESTRAIN, MITTEN PLACE ON BOTH HANDS PT TRIES TO KEEP THE GTUBE OUT OF HER. PT HAS PICC LINE ON HER RT HAND, DOUBLE LUMEN. IVF INFUSING AT 20 ML /HR. SUCTION AT THE BEDSIDE. PT IS ON ABX THERAPY. PT IS ON O2 2LPM VIA NC . NO SIGN OF DISTRESS NOTED. ALL SAFETY MEASURE IN PLACE. WILL CONTINUE TO MONITOR PT.
[2019-04-06] MEDS ORDERED: ACETYLCYSTEINE 10% (100 MG/ML) 100 MG/ML VIAL INH SCH (07:41)
[2019-04-06] MEDS ORDERED: ALBUTEROL SULFATE/IPRATROPIU 3 ML SOL IH SCH (07:42)
[2019-04-06 08:00] VITALS: BP 124/57
[2019-04-06] MEDS ORDERED: POTASSIUM CHLORIDE 20% 40 MEQ/15 ML UDC GT SCH (09:00)
[2019-04-06] MEDS ORDERED: amLODIPine 5 MG TAB GT SCH (09:00)
[2019-04-06] MEDS: DIVALPROEX 250 MG TABEC PO SCH (09:58)
[2019-04-06] MEDS: SENNA 8.6 MG TAB GT SCH (09:58)
[2019-04-06] MEDS: LACTOBACILLUS RHAMNOSUS GG 1 EACH CAP PO SCH (09:58)
--- NOTE | 2019-04-06 10:00 | NUR ---
ADMINISTERED MEDS TO PT ORDERED. VIA GT. GASTRIC RESIDUAL 5 ML OBTAINED AT THIS TIME. IVF INFUSING WELL. PT SLEEPING COMFORTABLY IN HER BED. ALL SAFETY MEASURE IN PLACE. WILL CONTINUE TO MONITOR PT.
--- NOTE | 2019-04-06 10:50 | NUR ---
Veterinary Attendant Note: Per Shirin from [facility] , patient has been living at their facility for 3 weeks. She told me they cannot accommodate patient with G-tube at their facility, since it is a non medical facility. Shirin stated patient does not have an Advance Directives for health care in her chart at [facility] and her son Giovany Mac is patient's health care decision maker. I explained to Shirin we will work on snf placement for G-tube care. I called and spoke with Giovany. He stated he is in agreement with patient's transfer to [facility] and reported he is patient's health care decision maker. He told me patient's has an Advance Directives indicating he is health care decision maker and would provide us with a copy of Advance Directives. I faxed inquiry to [facility].
[2019-04-06] MEDS ORDERED: FUROSEMIDE 20 MG/2 ML VIAL IVP SCH (11:40)
[2019-04-06 12:00] VITALS: BP 149/58
--- NOTE | 2019-04-06 13:00 | NUR ---
ADMINISTERED MEDS TO PT ORDERED. VS RECORDED NORMAL WITH BS 90. PT HAS CONTINUOUS GT , INFUSING WELL. IVF INFUSING WELL. PT REPOSITIONED AND CLEANED. NO SIGN OF DISTRESS NOTED. ALL SAFETY MEASURE IN PLACE. WILL CONTINUE TO MONITOR PT.
--- NOTE | 2019-04-06 15:33 | NUR ---
Medical Photographer Note: Per Malena at [facility] , patient has been accepted and may go to room 15A, accepting physician is , Charge Nurse Mabel made aware. Per RN Mabel, she will arrange transportation.
[2019-04-06 16:00] VITALS: BP 131/59
--- NOTE | 2019-04-06 16:03 | NUR ---
CONTACTED [employer] [facility] TO SET UP A [employer] SET UP TECHNICIAN, SPOKE WITH СВЕТЛАНА. PT'S INFO GIVEN. [facility] SET UP AT 6PM TONIGHT, (EARLIEST PER СВЕТЛАНА). СВЕТЛАНА IS AWARE THAT PT HAS O2 2LPM CONTINOUS AND G-TUBE. SITAL NURSE ASSIGNED NOTIFIED.
--- NOTE | 2019-04-06 17:51 | NUR ---
DISCONTINUED FLOWERS CATHETER AND PICC LINE ORDERED. CALLED EBON[facility] WISEMAN, GAVE REPORT ON PT TO JENIFER. PT PIK UP TIME 1800. FAMILY AT THE BEDSIDE.
--- NOTE | 2019-04-06 18:10 | NUR ---
PT WENT TO [facility], PT WENT WITH TRANSPORT PERSONNEL. GRANDDAUGHTER AT WITH PATIENT. ALL DC PAPER PROVIDED.
--- NOTE | 2019-04-06 19:00 | NUR ---
CALLED [facility] [phone], PT IN ROOM NUMBER [id number]. TALKED WITH MOISES BURGESS , STATES ITS THE [facility]ISTER [facility]GAN[facility] OF THE [facility]. PT WAS DISCHARGED TO [facility] ORIGINALLY. CHARGE NURSE AWARE THAT PT IS IN [facility], TALKED WITH THE [facility] STAFF. WILL TALK TO MARANDA MENDEZ TOMORROW REGARDING THE PT PER CHARGE NURSE.
[2019-04-07] MEDS ORDERED: FUROSEMIDE 40 MG/5 ML ORAL SOL UDC GT SCH (09:00)
== END 2019-04-06 18:10 | DRG 177 ==
LOC: MED 17:57 → MTU 23:04
PROVIDERS: ADMIT General Practice; ATTEND General Practice
PROC: 5A09357 Assistance with Respiratory Ventilation, Less than 24 Consecutive Hours, Continuous Positive Airway Pressure (ICD-10-PCS; principal; 2019-04-01)
PROC: 02HV33Z Insertion of Infusion Device into Superior Vena Cava, Percutaneous Approach (ICD-10-PCS; 2019-04-01)
PROC: B548ZZA Ultrasonography of Superior Vena Cava, Guidance (ICD-10-PCS; 2019-04-01)
PROC: 0DH63UZ Insertion of Feeding Device into Stomach, Percutaneous Approach (ICD-10-PCS; 2019-04-05)
DX: J69.0 Pneumonitis due to inhalation of food and vomit (principal); G93.41 Metabolic encephalopathy; N17.0 Acute kidney failure with tubular necrosis; J96.01 Acute respiratory failure with hypoxia; J96.02 Acute respiratory failure with hypercapnia; R65.11 Systemic inflammatory response syndrome (SIRS) of non-infectious origin with acute organ dysfunction; N39.0 Urinary tract infection, site not specified; E44.0 Moderate protein-calorie malnutrition; E87.0 Hyperosmolality and hypernatremia; E11.22 Type 2 diabetes mellitus with diabetic chronic kidney disease; F03.90 Unspecified dementia, unspecified severity, without behavioral disturbance, psychotic disturbance, mood disturbance, and anxiety; I12.9 Hypertensive chronic kidney disease with stage 1 through stage 4 chronic kidney disease, or unspecified chronic kidney disease; N18.9 Chronic kidney disease, unspecified; R13.10 Dysphagia, unspecified; R62.7 Adult failure to thrive; E11.40 Type 2 diabetes mellitus with diabetic neuropathy, unspecified; F32.9 Major depressive disorder, single episode, unspecified; E78.5 Hyperlipidemia, unspecified; E03.9 Hypothyroidism, unspecified; K59.00 Constipation, unspecified; G47.00 Insomnia, unspecified; E87.6 Hypokalemia; E83.39 Other disorders of phosphorus metabolism; E83.42 Hypomagnesemia; E87.8 Other disorders of electrolyte and fluid balance, not elsewhere classified; E66.9 Obesity, unspecified; D63.8 Anemia in other chronic diseases classified elsewhere; I69.320 Aphasia following cerebral infarction; Z90.49 Acquired absence of other specified parts of digestive tract; Z79.899 Other long term (current) drug therapy; Z68.27 Body mass index [BMI] 27.0-27.9, adult
CPT/HCPCS: 36415; 36600; 71045; 80048; 80053; 80185; 81001; 82140; 82150; 82607; 82728; 82746; 82803; 82948; 83036; 83540; 83605; 83690; 83735; 83880; 84100; 84134; 84436; 84443; 84484; 85025; 85045; 85610; 85730; 87040; 87070; 87075; 87081; 87086; 87186; 87205; 89220; 92610; 93005; 94640; 94660; 96361; 96365; 96372; 99291; C1751; J0696; J1200; J1630; J1644; J1815; J1940; J2001; J2250; J2270; J2543; J3010; J3475; J3480; J3490; J7030; J7042; J7060; J7620; Q0092

== ENCOUNTER 2020-06-11 18:04 | Emergency (ER) | payer OTHER, MEDICAID ==
[~2020-06-11] VITALS: Ht 165.1 cm; Wt 90.7 kg
[~2020-06-11 18:04] MED LIST: AMLO10TA PO; ATOR40TA PO; GABA-636 PO; INSU100I7 SQ; LEVO0.087 PO; MELA3TER PO; MIRT15TA4 PO; PHOS1PDR4 PO; SENN-72 PO; TRAZ100T78 PO; [UNRECOGNIZED DRUG - CODE] PO
[2020-06-11 18:14] VITALS: BP_SYST 133; BP_SYST 140; BP_DIAS 77; BP_DIAS 80
[2020-06-11] MEDS ORDERED: BISA-218 RC (18:34)
[2020-06-11] MEDS ORDERED: DONE5TAB6 GT (18:34)
[2020-06-11] MEDS ORDERED: LEVO0.2T5 GT (18:34)
[2020-06-11] MEDS ORDERED: SENN-3 GT (18:34)
[2020-06-11] MEDS ORDERED: AMLO10TA GT (18:34)
[2020-06-11] MEDS ORDERED: HYDR-3233 GT (18:34)
[2020-06-11] MEDS ORDERED: FAMO-90 GT (18:34)
[2020-06-11] MEDS ORDERED: ATOR40TA GT (18:34)
[2020-06-11] MEDS ORDERED: MIRABULK GT (18:34)
[2020-06-11] MEDS ORDERED: QUET25TA GT (18:34)
[2020-06-11 18:56] LABS: BASOPHILS % (AUTO) 0.5 % (0.0-2.0); EOSINOPHILS # (AUTO) 0.1 K/uL (0-0.4); EOSINOPHILS % (AUTO) 1.4 % (0.0-4.0); HEMATOCRIT 37.5 % (36-48); HEMOGLOBIN 12.4 g/dL (12.0-16.0); LYMPHOCYTES # (AUTO) 2.3 K/uL (2.5-16.5); LYMPHOCYTES % (AUTO) 35.1 % (20.5-51.1); MEAN CORPUSCULAR HEMOGLOBIN 32 pg (27-31); MEAN CORPUSCULAR HGB CONC 33 g/dL (33-37); MEAN CORPUSCULAR VOLUME 95.8 fL (80-94); MONOCYTES # (AUTO) 0.4 K/uL (0.8-1.0); MONOCYTES % (AUTO) 6.3 % (1.7-9.3); NEUTROPHILS # (AUTO) 3.7 K/uL (1.8-7.7); NEUTROPHILS % (AUTO) 56.7 % (42.2-75.2); PLATELET COUNT (AUTO) 269 K/uL (140-450); RED BLOOD CELL COUNT(AUTO) 3.91 MIL/uL (4.20-5.40); RED CELL DISTRIBUTION WIDTH 14.5 % (11.6-13.7); WHITE BLOOD COUNT (AUTO) 6.5 K/uL (4.8-10.8)
[2020-06-11 19:08] LABS: ALBUMIN 3.3 g/dL (3.4-5.0); ANION GAP 10.7 (8-16); ASPARTATE AMINOTRANSFERASE 29 U/L (15-37); CARBON DIOXIDE 32.9 mmol/L (21-32); CHLORIDE 103 mmol/L (98-107); CREATININE 1.1 mg/dL (0.6-1.3); GLUCOSE 102 mg/dL (74-106); LIPASE 111 U/L (73-393); POTASSIUM 3.6 mmol/L (3.5-5.1); SODIUM SERUM 143 mmol/L (136-145); TOTAL BILIRUBIN 0.3 mg/dL (0.0-1.0); UREA NITROGEN, BLOOD 28 mg/dL (7-18)
[2020-06-11] MEDS ORDERED: ACETAMINOPHEN EXTRA STRENGTH 500 MG TAB PO ONE (19:45)
[2020-06-11] MEDS ORDERED: ACETAMINOPHEN EXTRA STRENGTH 500 MG TAB GT ONE (20:10)
[2020-06-11 21:02] LABS: APPEARANCE,URINE CLOUDY (CLEAR); BILIRUBIN,URINE NEGATIVE (NEGATIVE); BLOOD, URINE TRACE-I (NEGATIVE); COLOR,URINE YELLOW (YELLOW); LEUKOCYTE ESTERASE ,URINE 3+ (NEGATIVE); NITRITE, URINE NEGATIVE (NEGATIVE); UGLUCOSE NEGATIVE (NEGATIVE)
[2020-06-11 21:20] LABS: WBC,URINE 80-100 /HPF (0-5)
[2020-06-12] MEDS ORDERED: LORazepam 2 MG/ML VIAL IVP ONE (06:40)
[2020-06-12] MEDS ORDERED: QUEtiapine FUMARATE 25 MG TAB GT ONE (06:50)
[2020-06-12] MEDS ORDERED: LORazepam 2 MG/ML VIAL IM ONE (06:50)
[2020-06-12 07:38] VITALS: BP 123/57
[2020-06-12] MEDS ORDERED: LORazepam 2 MG/ML VIAL IVP PRN (09:40)
== END 2020-06-12 09:40 | disposition home or self-care (01) ==
LOC: MED 18:04
DX: R10.32 Left lower quadrant pain (principal); R93.89 Abnormal findings on diagnostic imaging of other specified body structures; R41.82 Altered mental status, unspecified; I10 Essential (primary) hypertension; Z88.6 Allergy status to analgesic agent; Z88.8 Allergy status to other drugs, medicaments and biological substances; Z88.2 Allergy status to sulfonamides
CPT/HCPCS: 36415; 70450; 71045; 74176; 80053; 81001; 83690; 84484; 85025; 87086; 93005; 96372; 99285; J2060; Q0092